=== PATIENT | male | born 1975 | race African-American/Black ===

== ENCOUNTER 2016-12-22 03:35 | Inpatient (IN) | payer MEDICAID, SELFPAY ==
--- OUTSIDE RECORDS SUMMARY | 2016-12-22 03:38 | XMS | Continuity of Care Document ---
:1975 Author Organization [facility] Care Team Providers Name Role Phone CRISTOFER SAUL Primary Care Physician Unavailable Insurance Providers Payer Name Policy Number Subscriber Name Relationship MEDICAID PENDING MIRIAN WOODS SELF/SAME PATIENT IZABELA CARE PENDING MIRIAN WOODS SELF/SAME PATIENT Advance Directives Directive Response Recorded Date/Time Code Status Level I-Full Code 10/27/16 7:18pm Chief Complaint and Reason for Visit Reason for Visit DM FOOT ULCER Problems Active Medical Problems Problem Onset Date Recorded Date Status DM foot ulcer Unknown 10/21/16 Active Medications Current Home Medications Medication Dose Units Route Directions Days/Qty Instructions Start Date ACETAMINOPHEN 1 TAB By Mouth EVERY SIX W/CODEINE #3 HOURS 7 (TYLENOL/CODEINE NEEDED as #3 TAB) 300 needed for MG/30 MG TAB PAIN ALLOPURINOL 100 MG By Mouth EVERY DAY @ (ALLOPURINOL 100 0900 MG) 100 MG TAB Aspirin (ASPIRIN 325 MG By Mouth EVERY DAY @ 30 EC 325 MG TAB) 0900 7 325 MG TAB Atorvastatin 40 MG By Mouth AT BEDTIME 30 Calcium (LIPITOR (2100) 7 40 MG TAB) 40 MG TAB Ciprofloxacin 500 MG By Mouth TWICE A DAY 14 Days HCl (0900; 2099) 7 (CIPROFLOXACIN 500 MG TAB) 500 MG TAB Clindamycin HCl 300 MG By Mouth EVERY 8 HOURS 14 Days (CLINDAMYCIN 300 (06,14,22) 7 MG CAP) 300 MG CAP Clopidogrel 75 MG By Mouth EVERY DAY @ 30 Bisulfate 0900 7 (PLAVIX 75 MG TAB) 75 MG TAB INSULIN (HUMAN) 25 UNIT Subcutaneous TWICE DAILY, 30 Days 70/30 (NovoLIN Injection BEFORE MEALS 7 70/30 INJ) 100 UNITS/ML INJ LISINOPRIL 40 MG By Mouth EVERY DAY @ 30 (LISINOPRIL 40 0900 7 MG TAB) 40 MG TAB METFORMIN 1,000 MG By Mouth TWICE DAILY 60 HYDROCHLORIDE WITH MEALS 7 (METFORMIN 1,000 MG TAB) 1,000 MG TAB METOPROLOL 50 MG By Mouth TWICE A DAY 60 TARTRATE (09; 2099) 7 (METOPROLOL 50 MG TAB) 50 MG TAB Social History Problem Response Recorded Date Jain/Cultural Preferences: SIKH 10/21/16 Recreational drugs? N 10/21/16 Alcohol? Y 10/21/16 Query Response Start Date Stop Date Smoking Status: Current Every Day Smoker Hospital Discharge Instructions Diagnosis: DIABETIC FOOT ULCER Goal: IMPROVE CONDITION Intervention: ARTERIAL STENT AND DEBRIDEMENT OF FOOT ULCERS Anticipated Discharge Date 10/28/16 Anticipated Discharge Time 1500 Plan of Care Discharge Date 10/28/16 Disposition HOME/SELF CARE Instructions/Education Provided Diabetic Foot Ulcer Forms Provided Patient Portal [employer] Instruct DI How to Quit Smoking Prescriptions See Medications Section Additional Instructions/Education F/U W/ [facility] IN 1WK F/U W/ DR PRADO IN 1WK F/U W/ DR DEAL (CARDIOLOGY) IN 2WKS Care Plan and Goals See Discharge Instructions section Functional Status Query Response Date Recorded WNL?+ Y October 28, 2016 9:00am Allergies, Adverse Reactions, Alerts No known allergies. Immunizations Name Date Given Type Pnuemonia Vaccine last 5 years? Y Historical Estimated Date: 05/27/16 Historical Vital Signs Vital Reading Collection Date/Time Result Blood Pressure 10/28/16 2:15pm 155/91 Blood Pressure Source 10/28/16 12:00pm Auto Cuff Temperature 10/28/16 2:15pm 96.6 F Temperature Source 10/28/16 12:00pm Oral Respiratory Rate 10/28/16 2:15pm 18 Pulse Rate 10/28/16 2:15pm 78 Pulse Location 10/28/16 12:00pm Monitor Bedside Pulse Oximetry 10/28/16 2:15pm 100 Height 10/20/16 11:32pm 6 ft 3 in Height 10/20/16 11:32pm 190.5 cm Weight 10/20/16 11:32pm 236 lb Weight 10/20/16 11:32pm 107.048 kg Body Mass Index 10/20/16 11:32pm 29.5 kg/m2 Results Laboratory Results Test Name Result Units Flags Reference Collection Result Comments Date/Time Date/Time Glucose 105 mg/dL 70-109 10/28/16 10/28/16 (Fingerstick) 7:55am 8:25am Vancomycin Level 16 ug/mL H 10-10/27/16 10/27/16 Trough 8:38am 9:01am Sodium Level 140 mmol/L 135-144 10/26/16 10/26/16 3:25am 5:35am Potassium Level 3.7 mmol/L 3.5-5.1 10/26/16 10/26/16 3:25am 5:35am Chloride Level 106 mmol/L 101-111 10/26/16 10/26/16 3:25am 5:35am Carbon Dioxide 27 mmol/L 22-32 10/26/16 10/26/16 Level 3:25am 5:35am Anion Gap 10.7 mmol/L 10-20 10/26/16 10/26/16 3:25am 5:35am Glucose Level 182 mg/dL H 70-109 10/26/16 10/26/16 Random glucose > 200 mg/dL in a patient with typical 3:25am 5:35am symptoms of diabetes (polydipsia, polyuria and unexplained weight loss) satisfies ADA criteria for diabetes mellitus if confirmed by repeat testing on another day. Confirmation is unnecessary when acute metabolic decompensation with hyperglycemia is manifested. Reference: Report of the Expert Committee on the Diagnosis and Classification of Diabetes Mellitus. Diabetes Care, 20:1183, 1997. Blood Urea 12 mg/dL 8-26 10/26/16 10/26/16 Nitrogen 3:25am 5:35am Creatinine 1.00 mg/dL 0.61-1.24 10/26/16 10/26/16 3:25am 5:35am EGFR Note 117.8 59.3-175.8 10/26/16 10/26/16 eGFR (Estimated Glomerular Filtration Rate) 3:25am 5:35am eGFR calculation value obtained using the [facility] Quadratic (MCQ) equation. The reportable reference range is recommended to be greater than 60 ml/min/1.73m. This is an estimation of the patient's GFR and clinical correlation is recommended. This eGFR calculation does not account for race. This result may differ from other equations available. Calcium Level 8.8 mg/dL L 8.9-10.3 10/26/16 10/26/16 3:25am 5:35am White Blood 5.2 K/uL 4.8-10.8 10/23/16 10/23/16 Count 4:00am 4:43am Red Blood Count 4.30 M/uL L 4.70-6.00 10/23/16 10/23/16 4:00am 4:43am Hemoglobin 12.0 g/dL L 13.5-17.5 10/23/16 10/23/16 4:00am 4:43am Hematocrit 35.7 % L 42.0-52.0 10/23/16 10/23/16 4:00am 4:43am Mean Corpuscular 83.0 fl 80.0-100.0 10/23/16 10/23/16 Volume 4:00am 4:43am Mean Corpuscular 28.0 pg 27.0-31.0 10/23/16 10/23/16 Hemoglobin 4:00am 4:43am Mean Corpuscular 33.7 g/dL 32.0-36.0 10/23/16 10/23/16 Hgb Concent Diff 4:00am 4:43am Red Cell 14.8 % H 11.5-14.5 10/23/16 10/23/16 Distribution 4:00am 4:43am Width Platelet Count 234 K/uL 130-400 10/23/16 10/23/16 4:00am 4:43am Mean Platelet 7.6 fl 10/23/16 10/23/16 Volume 4:00am 4:43am Granulocytes (%) 45.2 % L 50.0-75.0 10/23/16 10/23/16 4:00am 4:43am Lymphocytes % 41.8 % H 20.0-40.0 10/23/16 10/23/16 4:00am 4:43am Monocytes % 6.4 % 0.0-15.0 10/23/16 10/23/16 4:00am 4:43am Eosinophils % 6.0 % 0.0-10.0 10/23/16 10/23/16 4:00am 4:43am Basophils % 0.6 % 0.0-2.0 10/23/16 10/23/16 4:00am 4:43am Granulocytes # 2.4 K/uL 1.8-6.4 10/23/16 10/23/16 4:00am 4:43am Lymphocytes # 2.2 K/uL 1.2-3.6 10/23/16 10/23/16 4:00am 4:43am Monocytes # 0.3 K/uL 0.3-0.9 10/23/16 10/23/16 4:00am 4:43am Eosinophils # 0.3 K/ul 0.0-0.5 10/23/16 10/23/16 4:00am 4:43am Basophils # 0.0 K/uL 0.0-0.2 10/23/16 10/23/16 4:00am 4:43am Manual NO 10/23/16 10/23/16 Differential 4:00am 4:43am N/A CALCULATE 10/23/16 10/23/16 CORONARY HEART DISEASE (CHD) RISK FACTORS: BELOW 4:00am 11:16am +1, Age (y): Men, >45 Women, >55 or Premature Menopause Without Estrogen Therapy +1, Family History of Premature CHD +1, Current Cigarette Smoking +1, Hypertension +1, Low HDL-C: <40 mg/dL -1, High HDL-C: 60 mg/dL or More Total RFs CHD Risk Equivalents (REq): Diabetes Other Forms of Atherosclerotic Disease Lipid testing of hospitalized patients may be inaccurate due to fluctuations from the patients normal metabolic state. Accurate triglyceride and LDL testing requires a fasting specimen. If non-fasting cholesterol > kf=545 mg/dL or HDL is < 40 mg/dL, fasting lipid panel is recommended. Repeat testing recommended prior to treatment. Desirable Levels Cholesterol 157 mg/dL 0-200 10/23/16 10/23/16 Level 4:00am 11:40am Triglycerides 81 mg/dL 10-150 10/23/16 10/23/16 Normal triglycerides: <150 mg/dL Level 4:00am 11:40am Borderline-high triglycerides: 150-199 mg/dL High triglycerides: 200-499 mg/dL Very high triglycerides: > fa=208 mg/dL HDL Cholesterol 50 mg/dL 40-130 10/23/16 10/23/16 4:00am 11:40am N/A 3.1 0.0-5.0 10/23/16 10/23/16 4:00am 11:40am LDL Cholesterol 91 mg/dL 0-130 10/23/16 10/23/16 *LDL Cholesterol < 130 mg/dL, No CHD or CHD Risk Equivalent (Measured) 4:00am 11:40am <100 mg/dL, With CHD or CHD Risk Equivalent LDL Cholesterol Therapeutic Goal: 100 mg/dL or Less if CHD or CHD Risk Equivalent Present <130 mg/dL if No CHD or REq; 2 or more Risk Factors <160 mg/dL if No CHD or REq; 0-1 Risk Factors Reference: ATP III, RYANNE, 285:26, 8777-77, 2001. Magnesium Level 2.0 mg/dL 1.8-2.5 10/23/16 10/23/16 4:00am 4:50am Miscellaneous YES YES 10/21/16 10/21/16 Test Comment 1:20am 2:09am Erythrocyte 17 mm/hr H 0-15 10/21/16 10/21/16 Sedimentation 1:20am 2:09am Rate Albumin 4.2 g/dL 3.5-5.0 10/21/16 10/21/16 1:20am 1:50am Total Bilirubin 0.4 mg/dL 0.3-1.2 10/21/16 10/21/16 1:20am 1:50am Alkaline 48 IU/L 32-91 10/21/16 10/21/16 Phosphatase 1:20am 1:50am Total Protein 6.9 g/dL 6.5-8.1 10/21/16 10/21/16 1:20am 1:50am Alanine 18 IU/L 7-55 10/21/16 10/21/16 Aminotransferase 1:20am 1:50am (ALT/SGPT) Aspartate Amino 14 IU/L L 15-41 10/21/16 10/21/16 Transf 1:20am 1:50am (AST/SGOT) Globulin 2.7 g/dL 2.3-3.5 10/21/16 10/21/16 1:20am 1:50am Albumin/Globulin 1.6 1.2-2.2 10/21/16 10/21/16 Ratio 1:20am 1:50am C-Reactive < 1.0 MG/DL 0.0-1.0 10/21/16 10/21/16 Protein 1:20am 1:50am Hemoglobin A1c 10.9 % H 4.0-6.0 10/21/16 10/21/16 Elevated levels of HbA1c suggest the need for more Percent 6:00pm 9:51am aggresssive treatment of glycemia. The [place] [employer] recommends that a primary goal of therapy should be a HbA1c of <7% and that physicians should reevaluate the treatment regimen in patients with HbA1c values consistently >8%. N/A 265 mg/dL 10/21/16 10/21/16 A1C Result% Estimated Avg.Glucose ( EAG) 6:00pm 9:51am 6.0% 126 mg/dL 6.5% 140 mg/dL 7.0% 154 mg/dL 7.5% 169 mg/dL 8.0% 183 mg/dL 8.5% 197 mg/dL 9.0% 212 mg/dL 9.5% 226 mg/dL 10.0% 240 mg/dL Reference: Mookie et al, Diabetes Care 31: 1437, 2008. Microbiology Results Procedure Source Result Collection Date/Time Result Date/Time Anaerobic Culture Foot, Right CULTURE IN 10/26/16 6:00pm 10/27/16 9:37am PROGRESS. Blood Culture Blood NO GROWTH AT 5 10/21/16 1:20am 10/26/16 6:31am DAYS. [facility] DISCHARGE SUMMARY Mirian Woods ADM: 10/21/2016 DIS: 10/28/2016 JarredR.#: [id number] [facility] [id number] HISTORY OF PRESENT ILLNESS: This is a 41-year-old male with a past medical history of type 2 diabetes, who presents with a wound on his foot. See History and physical for further details. HOSPITAL COURSE: Right lower extremity diabetic foot infection with ulceration. Patient had evidence of septic arthritis. Patient underwent I and D and aggressive IV antibiotic therapy. Cultures yielded no growth, but he did have improvement of symptoms. Bone biopsy revealed no evidence of osteomyelitis. He had significant peripheral arterial disease and he was revascularized in that leg with stenting. He had uncontrolled diabetes mellitus with an A1c of 10, and he was started on insulin therapy as well as metformin on discharge. His hypertension was controlled with an JENA inhibitor. Overall, patient's condition stabilized, he did well, and he was discharged home with oral antibiotics, oral pain medication, and outpatient follow up, as well as insulin therapy. DISPOSITION: Discharged home. DIAGNOSES: 1. Right lower extremity diabetic foot infection with ulceration. 2. Peripheral arterial disease. 3. Uncontrolled type 2 diabetes mellitus. 4. Hypertension. DIET: Diabetic. ACTIVITY: As instructed. FOLLOWUP: Patient is to follow up with Dr. Miller in 1 week. Patient is follow up with [facility] in 1 week. Patient is to follow up with Dr. Glass with Cardiology in 2 weeks. SP/DTShailesh/C0240 Geri Fox M.D. DISCHARGE SUMMARY DATE: TIME: /DTS C0240 #[id number] Report Dictated By: GERI FOX Report Signed By: GERI FOX 10/28/16 1301 <<Signature on File>> Report Cosigned By: Procedures No Known History of Procedures. Encounters Encounter Location Arrival/Admit Date Discharge/Depart Date Attending Provider Discharged [place] 10/20/16 11:31pm 10/28/16 3:44pm KRISTYN CRUZ [facility] Encounter Diagnosis Onset Date DM foot ulcer
--- OUTSIDE RECORDS SUMMARY | 2016-12-22 03:38 | XMS | Continuity of Care Document ---
:[address] [facility] Care Team Providers Name Role Phone NOLOCAL, PRIMARY Primary Care Physician Unavailable Insurance Providers Payer Name Policy Number Subscriber Name Relationship MEDICAID PENDING MIRIAN WOODS SELF/SAME PATIENT IZABELA CARE PENDING MIRIAN WOODS SELF/SAME PATIENT Chief Complaint and Reason for Visit Reason for Visit MY INCISION CAME OPEN Problems Active Medical Problems Problem Onset Date Recorded Date Status DM foot ulcer Unknown 10/21/16 Active Encounter for removal of sutures Unknown 11/16/16 Active Medications Current Home Medications Medication Dose Units Route Directions Days/Qty Instructions Start Date ACETAMINOPHEN 1 TAB By Mouth EVERY SIX W/CODEINE #3 HOURS 7 (TYLENOL/CODEINE NEEDED as #3 TAB) 300 needed for MG/30 MG TAB PAIN ALLOPURINOL 100 MG By Mouth EVERY DAY @ (ALLOPURINOL 100 0900 MG) 100 MG TAB Aspirin (ASPIRIN 325 MG By Mouth EVERY DAY @ EC 325 MG TAB) 0900 7 325 MG TAB Atorvastatin 40 MG By Mouth AT BEDTIME Calcium (LIPITOR (2100) 7 40 MG TAB) 40 MG TAB Ciprofloxacin 500 MG By Mouth TWICE A DAY 14 Days HCl (0900; 2099) 7 (CIPROFLOXACIN 500 MG TAB) 500 MG TAB Clindamycin HCl 300 MG By Mouth EVERY 8 HOURS 14 Days (CLINDAMYCIN 300 (06,,) 7 MG CAP) 300 MG CAP Clindamycin HCl 300 MG By Mouth EVERY 8 HOURS 30 (CLINDAMYCIN 300 (06,,) 7 MG CAP) 300 MG CAP Clopidogrel 75 MG By Mouth EVERY DAY @ 30 Bisulfate 0900 7 (PLAVIX 75 MG TAB) 75 MG TAB INSULIN (HUMAN) 25 UNIT Subcutaneous TWICE DAILY, 30 Days 70/30 (NovoLIN Injection BEFORE MEALS 7 7030 INJ) 100 UNITS/ML INJ LISINOPRIL 40 MG By Mouth EVERY DAY @ 30 (LISINOPRIL 40 0900 7 MG TAB) 40 MG TAB METFORMIN 1,000 MG By Mouth TWICE DAILY 60 HYDROCHLORIDE WITH MEALS 7 (METFORMIN 1,000 MG TAB) 1,000 MG TAB METOPROLOL 50 MG By Mouth TWICE A DAY 60 TARTRATE (0900; 2100) 7 (METOPROLOL 50 MG TAB) 50 MG TAB Mupirocin 2% Top 2 % External THREE TIME A 10 Days OINT (BACTROBAN DAY(;15;21) 7 2% OINTMENT) 2 % OIN Social History Problem Response Recorded Date Recreational drugs? N 11/16/16 Alcohol? N 11/16/16 Query Response Start Date Stop Date Smoking Status: Unknown Hospital Discharge Instructions Diagnosis: DIABETIC FOOT ULCER Goal: IMPROVE CONDITION Intervention: ARTERIAL STENT AND DEBRIDEMENT OF FOOT ULCERS Anticipated Discharge Date 10/28/16 Anticipated Discharge Time 1500 Plan of Care Discharge Date 11/19/16 Disposition HOME/SELF CARE Condition at Discharge STABLE Instructions/Education Provided DI for Diabetic Foot Ulcer Forms Provided Discharge Form Prescriptions See Medications Section Referrals NOLOCAL,PRIMARY CARE DOC - Additional Instructions/Education Please keep area clean and dry. Apply antibiotic ointment two to three times daily. Follow up with press tender within one week to set up wound care. Request home visits. Return to ER for development of worrisome symptoms. Functional Status No functional status results. Allergies, Adverse Reactions, Alerts No known allergies. Immunizations No Known History of Immunizations. Vital Signs Vital Reading Collection Date/Time Result Blood Pressure 11/19/16 9:38pm 148/78 Temperature 11/19/16 9:38pm 98.1 F Respiratory Rate 10/28/16 2:15pm 18 Pulse Rate 11/19/16 9:38pm 87 Bedside Pulse Oximetry 11/19/16 9:38pm 98 Height 11/19/16 6:19pm 6 ft 3 in Height 11/19/16 6:19pm 190.5 cm Weight 11/19/16 6:19pm 255 lb Weight 11/19/16 6:19pm 115.666 kg Body Mass Index 11/19/16 6:19pm 31.9 kg/m2 Results Laboratory Results Test Name Result Units Flags Reference Collection Result Comments Date/Time Date/Time Glucose 96 mg/dL 70-109 10/28/16 10/28/16 (Fingerstick) 12:37pm 7:15pm Vancomycin Level 16 ug/mL H 10-15 10/27/16 10/27/16 Trough 8:38am 9:01am Sodium Level 140 mmol/L 135-144 10/26/16 10/26/16 3:25am 5:35am Potassium Level 3.7 mmol/L 3.5-5.1 10/26/16 10/26/16 3:25am 5:35am Chloride Level 106 mmol/L 101-111 10/26/16 10/26/16 3:25am 5:35am Carbon Dioxide 27 mmol/L 22-32 10/26/16 10/26/16 Level 3:25am 5:35am Anion Gap 10.7 mmol/L 10-10/26/16 10/26/16 3:25am 5:35am Glucose Level 182 mg/dL [...] 5:35am eGFR calculation value obtained using the [facility] Quadratic (MCQ) equation. The reportable reference [...] a fasting specimen. If non-fasting cholesterol > vk=411 mg/dL or HDL is < 40 mg/dL, fasting lipid panel is recommended. Repeat testing recommended prior to treatment. Desirable Levels Cholesterol 157 mg/dL 0-200 10/23/16 10/23/16 Level 4:00am 11:40am Triglycerides 81 mg/dL 10-150 10/23/16 10/23/16 Normal triglycerides: <150 mg/dL Level 4:00am 11:40am Borderline-high triglycerides: 150-199 mg/dL High triglycerides: 200-499 mg/dL Very high triglycerides: > kh=533 mg/dL HDL Cholesterol 50 mg/dL 40-130 10/23/16 [...] 0-1 Risk Factors Reference: ATP III, RYANNE, 285:40, 3934-84, 2000. Magnesium Level 2.0 mg/dL 1.8-2.5 10/23/16 10/23/16 [...] 6:00pm 9:51am aggresssive treatment of glycemia. The [place] [employer] recommends that a primary goal [...] 9.5% 226 mg/dL 10.0% 240 mg/dL Reference: ramesh Damico, Diabetes Care 31: 1437, 2008. Microbiology Results Procedure Source Result Collection Date/Time Result Date/Time Blood Culture Blood NO GROWTH AT 5 DAYS. 10/21/16 1:20am 10/26/16 6:31am [facility] DISCHARGE SUMMARY Mirian Woods ADM: 10/21/2016 DIS: 10/28/2016 Demetra#: [id number] [facility]#: [id number] HISTORY OF PRESENT ILLNESS: This is a [...] 1 week. Patient is follow up with [facility] in 1 week. Patient is to follow up with Dr. Glass with Cardiology in 2 weeks. SP/DTS/C0240 Geri Fox M.D. DISCHARGE SUMMARY DATE: TIME: /DTS C0240 #[id number] Report Dictated By: GERI FOX Report Signed By: GERI FOX 10/28/16 1301 <<Signature on File>> Report Cosigned By: Procedures Procedure Status Date Provider(s) DILATION OF R POST TIB ART WITH 2 DRUG-ELUT, Completed 10/23/16 AL GLASS MD PERC APPROACH EXTIRPATION OF MATTER FROM R POST TIB ART, Completed 10/23/16 AL GLASS MD PERC APPROACH EXCISION OF RIGHT METATARSAL, OPEN APPROACH Completed 10/26/16 DARYL MILLER EXCISION OF RIGHT METATARSAL, OPEN APPROACH, Completed 10/26/16 DARYL MILLER DIAGNOSTIC FLUOROSCOPY OF AORTA, BI LE ART USING L OSM Completed 10/23/16 AL GLASS MD CONTRAST Encounters Encounter Location Arrival/Admit Date Discharge/Depart Date Attending Provider Departed [place] 11/19/16 6:18pm 11/19/16 9:38pm BRANDI VILLALOBOS [facility] Departed [place] 11/16/16 10:38am 11/16/16 11:34am Dewayne Olvera [facility] Discharged [place] 10/20/16 11:31pm 10/28/16 3:44pm JOYCE NAVARRETE [facility] Encounter Diagnosis Onset Date DM foot ulcer
--- OUTSIDE RECORDS SUMMARY | 2016-12-22 03:38 | XMS | Continuity of Care Document ---
:1975 Author Organization [facility] Care Team Providers Name Role Phone CRISTOFER SAUL Primary Care Physician Unavailable Insurance Providers Payer Name Policy Number Subscriber Name Relationship MEDICAID PENDING MIRIAN WOODS SELF/SAME PATIENT I[employer]ABEL[employer] CARE PENDING MIRIAN WOODS SELF/SAME PATIENT Chief Complaint and Reason for Visit Reason for Visit GET MY STITCHES OUT Problems Active Medical Problems Problem Onset Date [...] EVERY 8 HOURS 14 Days (CLINDAMYCIN 300 (06,14,) 7 MG CAP) 300 MG CAP Clopidogrel [...] TAB Social History Problem Response Recorded Date Recreational drugs? N 11/16/16 Alcohol? N 11/16/16 Query Response Start Date Stop Date Smoking Status: Current Every Day Smoker Hospital Discharge Instructions Diagnosis: DIABETIC FOOT ULCER Goal: IMPROVE CONDITION Intervention: ARTERIAL STENT AND DEBRIDEMENT OF FOOT ULCERS Anticipated Discharge Date 10/28/16 Anticipated Discharge Time 1500 Plan of Care Discharge Date 11/16/16 Disposition HOME/SELF CARE Condition at Discharge STABLE Instructions/Education Provided DI for Suture Removal Forms Provided Discharge Form Prescriptions See Medications Section Referrals KG,CRISTOFER - Additional Instructions/Education SUTURE REMOVAL. PLEASE WATCH FOOT CLOSELY, NO SIGNS OF INFECTION, HEALING WOUND, BUT CONSIDERING YOUR DIABETIC YOU'RE PRONE TO INFECTION, WATCH FOR REDNESS, DRAINAGE, FEVER AND SEEK MEDICAL CARE IMMEDIATELY. Functional Status No functional status results. Allergies, Adverse Reactions, Alerts No known allergies. Immunizations No Known History of Immunizations. Vital Signs Vital Reading Collection Date/Time Result Blood Pressure 11/16/16 11:31am 120/70 Temperature 11/16/16 11:31am 98.0 F Temperature Source 11/16/16 10:39am Oral Respiratory Rate 10/28/16 2:15pm 18 Pulse Rate 11/16/16 11:31am 71 Bedside Pulse Oximetry 11/16/16 11:31am 99 Height 11/16/16 10:39am 6 ft 3 in Height 11/16/16 10:39am 190.5 cm Weight 11/16/16 10:39am 255 lb Weight 11/16/16 10:39am 115.666 kg Body Mass Index 11/16/16 10:39am 31.9 kg/m2 Results Laboratory Results Test Name [...] Care, 20:1183, 1997. Blood Urea 12 mg/dL 8-10/26/16 10/26/16 Nitrogen 3:25am 5:35am Creatinine 1.00 mg/dL 0.61-1.24 10/26/16 10/26/16 3:25am 5:35am EGFR Note 117.8 59.3-175.8 10/26/16 10/26/16 eGFR (Estimated Glomerular Filtration Rate) 3:25am 5:35am eGFR calculation value obtained using the [facility] Quadratic (MCQ) equation. The reportable reference range [...] a fasting specimen. If non-fasting cholesterol > bu=779 mg/dL or HDL is < 40 mg/dL, fasting lipid panel is recommended. Repeat testing recommended prior to treatment. Desirable Levels Cholesterol 157 mg/dL 0-200 10/23/16 10/23/16 Level 4:00am 11:40am Triglycerides 81 mg/dL 10-150 10/23/16 10/23/16 Normal triglycerides: <150 mg/dL Level 4:00am 11:40am Borderline-high triglycerides: 150-199 mg/dL High triglycerides: 200-499 mg/dL Very high triglycerides: > ei=153 mg/dL HDL Cholesterol 50 mg/dL 40-130 10/23/16 [...] 0-1 Risk Factors Reference: ATP III, RYANNE, 285:53, 9827-48, 2000. Magnesium Level 2.0 mg/dL 1.8-2.5 10/23/16 [...] 6:00pm 9:51am aggresssive treatment of glycemia. The [place] Diabetes [employer] recommends that a primary goal [...] 9.5% 226 mg/dL 10.0% 240 mg/dL Reference: damaris Damico al, Diabetes Care 31: 1437, 2008. Microbiology Results Procedure Source Result Collection Date/Time Result Date/Time Blood Culture Blood NO GROWTH AT 5 DAYS. 10/21/16 1:20am 10/26/16 6:31am [facility] DISCHARGE SUMMARY Mirian Woods ADM: 10/21/2016 DIS: 10/28/2016 Demetra#: [id number] HISTORY OF PRESENT ILLNESS: This is a [...] Patient is to follow up with Dr. Rosenbaum in 1 week. Patient is follow up with [facility] in 1 week. Patient is to follow up with Dr. Glass with Cardiology in 2 weeks. SP/DTS/C0240 Geri Fox M.D. DISCHARGE SUMMARY DATE: TIME: /DT C0240 [id number] Report Dictated By: GERI FOX Report Signed By: GERI FOX 10/28/16 1301 <<Signature on File>> Report Cosigned By: Procedures Procedure Status Date Provider(s) DILATION OF R POST TIB ART WITH 2 DRUG-ELUT, Completed 10/23/16 AL GLASS MD PERC APPROACH EXTIRPATION OF MATTER FROM R POST TIB ART, Completed 10/23/16 AL GLASS MD PERC APPROACH EXCISION OF RIGHT METATARSAL, OPEN APPROACH Completed 10/26/16 DARYL ROSENBAUM EXCISION OF RIGHT METATARSAL, OPEN APPROACH, Completed 10/26/16 DARYL ROSENBAUM DIAGNOSTIC FLUOROSCOPY OF AORTA, BI LE ART USING L OSM Completed 10/23/16 AL GLASS MD CONTRAST Encounters Encounter Location Arrival/Admit Date Discharge/Depart Date Attending Provider Departed [place] 11/16/16 10:38am 11/16/16 11:34am Dewayne Olvera [facility] Discharged [place] 10/20/16 11:31pm 10/28/16 3:44pm JOYCE NAVARRETE [facility] Encounter Diagnosis Onset Date Encounter for removal of sutures
--- NOTE | 2016-12-22 06:09 | HP ---
PRIMARY CARE PHYSICIAN: [facility] CHIEF COMPLAINT: Right foot pain. HISTORY OF PRESENT ILLNESS: The patient is a 41-year-old male with uncontrolled di abetes mellitus type 2, presented to the emergency room at [place] with the above complaints. He was transferred to this facility for hospital admission. Over the last 1 week, the patient developed gradual worsening swelling of his right foot along with warmth and tenderness. He also felt feverish without any chills. He has a chronic ulcer on the rig ht foot that started draining pus earlier today. Two months ago, the patient had some surgical inte rvention done at [facility]. He is unable to provide further details of the proce dures. The pain is moderate in intensity, worse on movement. The patient was managing his wound on his own. In the emergency room, his initial vital signs showed temperature 99.5, respirations 16, pulse of 99 , blood pressure 179/98 with O2 saturation 98% on room air. His temperature while in the emergency room kwame to 101.3. An x-ray of the foot showed soft tissue swelling without any subcutaneous gas. He received vancomycin and Zosyn, 2 grams Rocephin, 4 mg, Dilaudid, 30 mg Toradol, Zofran and Tylen ol in the emergency room. PAST MEDICAL HISTORY: 1. Uncontrolled diabetes mellitus type 2 with hemoglobin A1c of 12.6. 2. Ongoing tobacco abuse. 3. Hypertension. 4. Dyslipidemia. 5. Chronic kidney disease stage 2. PAST SURGICAL HISTORY: Recent surgical intervention of the right foot ulcer. ALLERGIES: No known drug allergies. CURRENT HOME MEDICATIONS: The patient states that he takes insulin 28 units every day. His last do se of insulin was 2 days ago. He is unable to recall other home medications. FAMILY HISTORY: Positive for diabetes. SOCIAL HISTORY: Patient smokes cigarettes on a daily basis up to 1 pack a day. Denies any alcohol or drug use. REVIEW OF SYSTEMS: The following complete review of systems was negative, unless otherwise mentioned in the HPI or below: Constitutional: Weight loss or gain, ability to conduct usual activities. Skin: Rash, itching. Eyes: Double vision, pain. ENT/Mouth: Nose bleeding, neck stiffness, pain, tenderness. Cardiovascular: Palpitations, dyspnea on exertion, orthopnea. Respiratory: Shortness of breath, wheezing, cough, hemoptysis, fever or night sweats. Gastrointestinal: Poor appetite, abdominal pain, heartburn, nausea, vomiting, constipation, or diarrhea. Genitourinary: Urgency, frequency, dysuria, nocturia. Musculoskeletal: Pain, swelling. Neurologic/Psychiatric: Anxiety, depression. Allergy/Immunologic: Skin rash, bleeding tendency. PHYSICAL EXAMINATION: VITAL SIGNS: As discussed above. GENERAL: A 41-year-old male in mild distress due to right foot pain. HEENT: Head atraumatic, normocephalic, sclerae are anicteric. Moist mucous membrane, no oral lesio n. NECK: Supple, no JVD, no carotid bruit. LUNGS: Clear to auscultation bilaterally. HEART: S1, S2 present. Regular rate and rhythm. ABDOMEN: Soft. Bowel sounds present. EXTREMITIES: There is 2+ edema in right lower extremity with warmth and tenderness. There is a lar ge area of induration and fluctuance on the medial aspect of the right 1st metatarsal with purulent drainage. Pedal pulses were diminished bilaterally. SKIN: As above. PERIPHERAL VASCULAR: As discussed above. LYMPH NODES: No palpable lymph nodes in the neck and groin. LABORATORY FINDINGS: 1. CBC showed WBC 7.2 with hemoglobin 10.5, hematocrit 31.5, platelet of 387. 2. Blood sugars were 396, sodium 135, potassium 4. 3. Hemoglobin A1c 12.6. 4. Albumin 3.4. 5. X-ray of the foot by my review as discussed above. Chest x-ray by my review was negative for in filtrate. IMPRESSION AND PLAN: 1. Infected diabetic foot ulcer with sepsis. The patient will be monitored on the medical floor. We will keep the patient n.p.o. for possible surgical intervention. General Surgery will be consult ed. The ER physician already discussed the case with Dr. Barrios. We will start him on gentle IV hy dration due to elevated blood pressure. We will continue vancomycin and Zosyn for now. We will con sult Wound Care. 2. Diabetes mellitus type 2, uncontrolled. We will start him on insulin sliding scale along with L evemir. The patient was extensively counseled to be compliant with diabetic regimen. 3. Hypertension, uncontrolled. We will resume home medication once confirmed. 4. Medication noncompliance. 5. Mild hyponatremia secondary to hyperglycemia. 6. Ongoing tobacco abuse. The patient was counseled. 7. Dyslipidemia. The patient was advised to follow up with his primary care physician. 8. Plan of care was discussed with the patient and he stated understanding.
[2016-12-22] MEDS ORDERED: Vancomycin HCl 1 GM in Premix Bag 1 BAG IVPB SCH ×2 (06:34→14:00)
[2016-12-22] MEDS ORDERED: Dextrose 5% in Water 1,000 ML IV PRN ×2 (06:34→06:40)
[2016-12-22] MEDS ORDERED: Ondansetron HCl/PF 4 MG/2 ML Vial IVP PRN ×2 (06:34→06:37)
[2016-12-22] MEDS ORDERED: Senokot 8.6 MG TAB PO PRN (06:34)
[2016-12-22] MEDS ORDERED: Ondansetron ODT 4 MG TAB PO PRN (06:34)
[2016-12-22] MEDS ORDERED: Bisacodyl 10 MG SUPP PR PRN (06:34)
[2016-12-22] MEDS ORDERED: Dextrose 50% Abboject 50 ML SYRINGE SLOW IVP PRN (06:34)
[2016-12-22] MEDS ORDERED: Piperacillin/Tazobactam 3.375 GM in Sodium Chloride 0.9% 100 ML IVPB SCH ×2 (06:34→08:00)
[2016-12-22] MEDS ORDERED: Diabetic Tussin 200 MG/10 ML UDCUP PO PRN (06:34)
[2016-12-22] MEDS ORDERED: Ondansetron ODT 4 MG TAB SL PRN (06:37)
[2016-12-22] MEDS ORDERED: 1/2 NS w/KCL 20 mEq 1,000 ML IV SCH (06:37)
[2016-12-22] MEDS ORDERED: Insulin Regular 300 UNITS/3 ML VIAL SC PRN (06:40)
[2016-12-22] MEDS ORDERED: Dextrose 50% Abboject 50 ML SYRINGE IVP PRN (06:40)
[2016-12-22] MEDS ORDERED: Insulin Detemir 100 UNITS/ML 10 UNITS in Pre-Filled Syringe 1 EACH SC SCH (07:00)
--- NOTE | 2016-12-22 07:36 | CON ---
DATE OF CONSULTATION: 12/22/2016 HISTORY OF PRESENT ILLNESS: Avtar Woods is a 41-year-old black male patient who lives in [facility] with his sister. He states he has been in and out of intermediate and group home. He states his mother is recent and this has changed his life. He was working for [employer], but has a leave of ab sence due to the right foot problems. The patient was hospitalized June of this year, [facility] for chest pain, diabetes mellitus type 2. On this occasion he presents with a diabetic right fo ot ulcer that has resulted in a severe infection in his right foot with x-rays demonstrating osteomy elitic changes of the head of the metatarsal. He was admitted to the medical service, hemoglobin 12 . I have been asked to see him regarding this diabetic foot infection. Patient reports that in [facility] he had some sort of vascular procedure with stenting, although he has a palpable dorsalis pe dis pulse. He does smoke 1 to 4 cigarettes a day. He does also have hypertension. The plan at this time is amputation of the right great toe and metatarsal and adjacent toes as indic ated based on operative findings. He understands the wound will be left open to heal by secondary i ntention. He will undergo wound care. This will be arranged as an outpatient. PAST MEDICAL HISTORY: Uncontrolled diabetes mellitus type 2, noncompliant. Hemoglobin A1c of 12.6, ongoing tobacco use, hypertension, dyslipidemia, chronic kidney disease. PAST SURGICAL HISTORY: Past surgery of the right foot and some sort of vascular stenting in [facility] earlier this year. ALLERGIES: None. MEDICATIONS: He takes insulin twice a day, does not take it every day. He does not recall his home medications. PHYSICAL EXAMINATION: VITAL SIGNS: Weight 107 kilograms, 179/98, 99, 16, temperature 99.5 degrees. HEENT: Unremarkable. LUNGS: Clear to auscultation. CARDIAC: Regular rate and rhythm without murmur or gallop. ABDOMEN: Soft, nontender. EXTREMITIES: Palpable femoral, popliteal, dorsalis pedis pulses bilaterally, severe infection of ri ght foot with diabetic infection with multiple ulcerations and purulent discharge, foul smelling. C ellulitic edematous foot. ASSESSMENT AND PLAN: 1. Severe diabetic infection, right foot. Plan amputation of right great toe and metatarsals as in dicated. 2. Ongoing tobacco use, encouraged cessation. 3. Poorly controlled diabetes. 4. Hypertension. 5. BUN and creatinine are normal. GFR greater than 90.
[2016-12-22] MEDS ORDERED: Fentanyl 100 MCG/2 ML VIAL ONE ×2 (08:01→08:47)
[2016-12-22] MEDS ORDERED: Midazolam HCl 2 mg/2 ml Vial ONE (08:01)
[2016-12-22] MEDS ORDERED: Vancomycin HCl 1.5 GM in Sodium Chloride 0.9% 250 ML 300 ML IVPB SCH (08:15)
[2016-12-22] MEDS ORDERED: Propofol 200 MG/20 ML VIAL ONE (08:36)
[2016-12-22] MEDS ORDERED: Lidocaine 2% PF 10 ML AMP (For Epidural Use) ONE (08:36)
[2016-12-22] MEDS: Piperacillin/Tazobactam 3.375 GM in Sodium Chloride 0.9% 100 ML IVPB SCH ×3 (09:28→20:20)
[2016-12-22] MEDS: Sodium Chloride 0.9% 1,000 ML IV SCH ×2 (10:25→12:06)
[2016-12-22] MEDS: Famotidine 20 MG TAB PO SCH ×2 (12:05→21:20)
[2016-12-22] MEDS: Docusate 100 MG CAP PO SCH ×2 (12:05→21:20)
[2016-12-22] MEDS: Folic Acid 1 MG TAB PO SCH (12:05)
--- NOTE | 2016-12-22 12:05 | OP ---
DATE OF PROCEDURE: 12/22/2016 PREOPERATIVE DIAGNOSES: Diabetic infection of right foot with osteomyelitis of the great toe metata rsal and neuropathic ulcer extending deep into the bone with bony destruction. No evidence of perip heral artery disease, excellent bleeding, palpable pulses. SURGEON: Dr. Marquis Barrios ANESTHESIA: General LMA. PROCEDURE: The patient was taken to the operating room where under general LMA anesthesia, the righ t lower extremity was prepared with chloraprep, draped in routine fashion. Incision was made to pre serve all skin, carried down through the skin and subcutaneous tissue excising the right great toe a nd metatarsal and underlying neuropathic ulcer. Hemostasis gained with the cautery. There was puls atile bleeding. Metatarsal transected with a bone cutter, resected proximally with rongeurs. Hemos tasis gained with cautery. Good hemostasis obtained. Wound Care arrived and placed a wound VAC. The patient will be discharged home in 24-72 hours after control of his diabetes and arrangement for outpatient wound care. He can followup in my office in 2-3 weeks.
[2016-12-22] MEDS: Insulin Regular 300 UNITS/3 ML VIAL SC PRN ×2 (12:12→16:19)
--- NOTE | 2016-12-22 13:08 | PDOC.PN ---
- Subjective Encounter Start Date: 12/22/16 Encounter Start Time: 12:00 Subjective: is post op, no sob or chest pain - Objective Resuscitation Status: Resuscitation Status FULL:Full Resuscitation MAR Reviewed: Yes Vital Signs & Weight: Vital Signs (12 hours) Temp Pulse Resp BP Pulse Ox 12/22/16 11:12 98.1 F 78 18 165/98 H 100 12/22/16 10:17 97.2 F L 80 18 100 12/22/16 06:34 97.6 F 80 18 155/93 H 100 Weight Weight 248 lb 9 oz Additional Labs: Accuchecks 12/22/16 12/22/16 11:58 08:24 POC Glucose 318 H 331 H Phys Exam - Physical Examination HEENT: PERRLA, moist MMs Neck: no JVD, supple Respiratory: no wheezing, no rales Cardiovascular: RRR, no significant murmur Gastrointestinal: soft, non-tender, positive bowel sounds Musculoskeletal: pulses present right fore foot in wound vac Neurological: non-focal, moves all 4 limbs Psychiatric: A&O x 3 Dx/Plan (1) Ulcer of right foot due to type 2 diabetes mellitus Code(s): E11.621 - TYPE 2 DIABETES MELLITUS WITH FOOT ULCER; L97.519 - NON-PRS CHRONIC ULCER OTH PRT RIGHT FOOT W UNSP SEVERITY Status: Acute (2) HTN (hypertension) Code(s): I10 - ESSENTIAL (PRIMARY) HYPERTENSION Status: Chronic Qualifiers: Hypertension type: essential hypertension Qualified Code(s): I10 - Essential (primary) hypertension (3) Dyslipidemia Code(s): E78.5 - HYPERLIPIDEMIA, UNSPECIFIED Status: Chronic (4) Chronic anemia Code(s): D64.9 - ANEMIA, UNSPECIFIED Status: Chronic (5) DM (diabetes mellitus), type 2, uncontrolled Code(s): E11.65 - TYPE 2 DIABETES MELLITUS WITH HYPERGLYCEMIA Status: Acute Qualifiers: Diabetes mellitus complication status: with hypoglycemia Diabetes mellitus terminal supervisor insulin use: with terminal supervisor use - Plan optimizing diabetic meds -: is s/p ray amp of right first toe -: on vanc and zosyn -: dc plan in 30hrs -: counselled reg diet and med compliance with HbA1C of 12 * . Review of Systems - Medications/Allergies Allergies/Adverse Reactions: Allergies Allergy/AdvReac Type Severity Reaction Status Date / Time No Known Allergies Allergy Verified 07/13/16 04:01 Medications: Current Medications Acetaminophen (Tylenol) 650 mg PO Q4H PRN PRN Reason: Headache/Fever or Pain Bisacodyl (Dulcolax) 10 mg [place] Q24H PRN PRN Reason: Constipation Clonidine HCl (Catapres) 0.1 mg PO Q4H PRN PRN Reason: Systolic BP > 180 Dextrose/Water (Dextrose 50%) 25 gm SLOW IVP PRN PRN PRN Reason: Hypoglycemia Docusate Sodium (Colace) 100 mg PO BID [facility] Last Admin: 12/22/16 12:05 Dose: 100 mg Famotidine (Pepcid) 20 mg PO BID [facility] Last Admin: 12/22/16 12:05 Dose: 20 mg Folic Acid (Folvite) 1 mg PO DAILY [facility] Last Admin: 12/22/16 12:05 Dose: 1 mg Glucagon (Glucagon) 1 mg IM PRN PRN PRN Reason: Hypoglycemia Guaifenesin (Robitussin Sf) 200 mg PO Q4H PRN PRN Reason: Cough Hydralazine HCl (Apresoline) 10 mg SLOW IVP Q4H PRN PRN Reason: SBP Greater Than 180 Dextrose/Water (D5w) 1,000 mls @ 0 mls/hr IV .Q0M PRN; As Directed PRN Reason: Hypoglycemia Sodium Chloride (Normal Saline 0.9%) 1,000 mls @ 125 mls/hr IV .Q8H [facility] Last Admin: 12/22/16 12:06 Dose: 1,000 mls Insulin Detemir 15 units/ (Miscellaneous Medication) 0.15 mls @ 0 mls/hr SC BID [facility] Piperacillin Sod/Tazobactam (Sod 3.375 gm/ Sodium Chloride) 100 mls @ 200 mls/ hr IVPB Q6H [facility] Last Admin: 12/22/16 09:28 Dose: 100 mls Vancomycin HCl 1.5 gm/ Sodium (Chloride) 300 mls @ 200 mls/hr IVPB 0800,1600, 2359 [facility] Insulin Human Regular (Humulin R) 0 units SC .MILD SLIDING SCALE PRN PRN Reason: Mild Correctional Scale Last Admin: 12/22/16 12:12 Dose: 5 unit Miscellaneous Medication (Pharmacy To Dose) 0 each IVPB ASDIR PRN PRN Reason: Pharmacy to Dose VANCOMYCIN Ondansetron HCl (Zofran Odt) 4 mg PO Q6H PRN PRN Reason: Nausea/Vomiting Ondansetron HCl (Zofran) 4 mg IVP Q6H PRN PRN Reason: Nausea/Vomiting Pneumococcal Polyvalent Vaccine (Pneumovax 23) 0.5 ml IM .ONCE ONE Stop: 12/22/16 21:01 Senna (Senokot) 2 tab PO HSPRN PRN PRN Reason: Constipation Sodium Chloride (Flush - Normal Saline) 10 ml IVF Q12HR [facility] Last Admin: 12/22/16 12:11 Dose: Not Given Sodium Chloride (Flush - Normal Saline) 10 ml IVF PRN PRN PRN Reason: Saline Flush Thiamine HCl (Thiamine) 100 mg PO DAILY [facility] Last Admin: 12/22/16 12:05 Dose: 100 mg
[2016-12-22 14:30] VITALS: BMI 30.9
[2016-12-22] MEDS: Vancomycin HCl 1.5 GM in Sodium Chloride 0.9% 250 ML 300 ML IVPB SCH (16:18)
[2016-12-22] MEDS ORDERED: Insulin Detemir 100 UNITS/ML 15 UNITS in Pre-Filled Syringe 1 EACH SC SCH (21:00)
[2016-12-22] MEDS: Acetaminophen 325 MG TAB PO PRN (22:12)
[2016-12-23] MEDS: Vancomycin HCl 1.5 GM in Sodium Chloride 0.9% 250 ML 300 ML IVPB SCH ×2 (00:33→09:18)
[2016-12-23] MEDS: Sodium Chloride 0.9% 1,000 ML IV SCH ×2 (00:37→05:08)
[2016-12-23] MEDS: cloNIDine HCl 0.1 MG TAB PO PRN ×2 (01:32→21:12)
[2016-12-23 04:49] LABS: #Eosinphils 0.3 thou/uL (0.0-0.7); #Lymphocytes 2.1 thou/uL (1.20-3.40); #Monocytes 0.4 thou/uL (0.11-0.59); %Basophils 0.6 % (0.0-1.0); %Eosinophils 4.1 % (0.0-10.0); %Lymphocytes 30.7 % (21.0-51.0); %Monocytes 6.1 % (0.0-10.0); Hematocrit 27.8 % (42.0-52.0); Red Blood Cell (RBC) Count 3.25 mill/uL (4.70-6.10); White Blood Cell (WBC) Count 6.8 thou/uL (4.8-10.8)
[2016-12-23] MEDS: Insulin Regular 300 UNITS/3 ML VIAL SC PRN ×3 (05:08→16:52)
[2016-12-23 05:09] LABS: ALT (SGPT) 15 U/L (8-55); AST (SGOT) 25 U/L (5-34); Alkaline Phosphatase 124 U/L (40-150); Anion Gap 10 mmol/L (10-20); BUN (Urea Nitrogen) 11 mg/dL (8.9-20.6); Bilirubin, Total 0.3 mg/dL (0.2-1.2); Calc. Creatinine Clearance 152 mL/min (70-130); Calcium 8.5 mg/dL (7.8-10.44); Carbon Dioxide 28 mmol/L (22-29); Chloride 103 mmol/L (98-107); Estimated GFR-MDRD Greater than 90; Globulin 4.2 g/dL (2.4-3.5)
[2016-12-23] MEDS: Piperacillin/Tazobactam 3.375 GM in Sodium Chloride 0.9% 100 ML IVPB SCH ×5 (07:00→19:14)
[2016-12-23 07:58] LABS: Vancomycin, Trough 20.2 ug/mL
[2016-12-23] MEDS: Docusate 100 MG CAP PO SCH ×2 (08:12→21:02)
[2016-12-23] MEDS: Folic Acid 1 MG TAB PO SCH (08:13)
[2016-12-23] MEDS: Famotidine 20 MG TAB PO SCH ×2 (08:13→21:01)
[2016-12-23] MEDS: Acetaminophen 325 MG TAB PO PRN ×2 (08:20→21:01)
[2016-12-23] MEDS: Insulin Detemir 100 UNITS/ML 20 UNITS in Pre-Filled Syringe 1 EACH SC SCH ×2 (09:47→21:02)
[2016-12-23] MEDS: Vancomycin HCl 1.25 GM in Sodium Chloride 0.9% 250 ML 250 ML IVPB SCH ×2 (09:47→16:51)
--- NOTE | 2016-12-23 14:50 | PDOC.PN ---
- Subjective Encounter Start Date: 12/23/16 Encounter Start Time: 09:00 Subjective: feels better -: has not tried glipizide before, diabetes from last 5yrs - Objective Resuscitation Status: Resuscitation Status FULL:Full Resuscitation MAR Reviewed: Yes Vital Signs & Weight: Vital Signs (12 hours) Temp Pulse Resp BP BP Pulse Ox 12/23/16 11:54 97.9 F 83 16 153/95 H 100 12/23/16 08:13 143/81 H 12/23/16 08:08 98.4 F 86 16 143/81 H 99 12/23/16 08:00 98.4 F 86 16 99 12/23/16 05:30 163/98 H 12/23/16 04:08 97.7 F 82 16 173/101 H 99 Weight Admit Weight 248 lb 8.998 oz Weight 248 lb 8.998 oz I&O: 12/22/16 12/23/16 12/24/16 06:59 06:59 06:59 Intake Total 2400 Output Total 1000 Balance 1400 Result Diagrams: 12/23/16 03:59 12/23/16 03:59 Additional Labs: Accuchecks 12/23/16 12/23/16 12/23/16 11:54 08:26 04:38 POC Glucose 193 H 206 H 232 H 12/23/16 12/22/16 12/22/16 01:26 21:11 16:06 POC Glucose 354 H 196 H 275 H Phys Exam - Physical Examination HEENT: PERRLA, moist MMs Neck: no JVD, supple Respiratory: no wheezing, no rales Cardiovascular: RRR, no significant murmur Gastrointestinal: soft, non-tender, positive bowel sounds Musculoskeletal: pulses present right foot in dressing and wound vac Neurological: non-focal, moves all 4 limbs Psychiatric: A&O x 3 Dx/Plan (1) Ulcer of right foot due to type 2 diabetes mellitus Code(s): E11.621 - TYPE 2 DIABETES MELLITUS WITH FOOT ULCER; L97.519 - NON-PRS CHRONIC ULCER OTH PRT RIGHT FOOT W UNSP SEVERITY Status: Acute (2) HTN (hypertension) Code(s): I10 - ESSENTIAL (PRIMARY) HYPERTENSION Status: Chronic Qualifiers: Hypertension type: essential hypertension Qualified Code(s): I10 - Essential (primary) hypertension (3) Dyslipidemia Code(s): E78.5 - HYPERLIPIDEMIA, UNSPECIFIED Status: Chronic (4) Chronic anemia Code(s): D64.9 - ANEMIA, UNSPECIFIED Status: Chronic (5) DM (diabetes mellitus), type 2, uncontrolled Code(s): E11.65 - TYPE 2 DIABETES MELLITUS WITH HYPERGLYCEMIA Status: Acute Qualifiers: Diabetes mellitus complication status: with hyperglycemia Diabetes mellitus correction insulin use: with correction use Qualified Code(s): E11.65 - Type 2 diabetes mellitus with hyperglycemia; Z79.4 - termination clerk (current) use of insulin - Plan add glipizide, increase levemir to 20 u bid -: will come down on levemir based on glucose trend -: will need wound vac for dc plan -: add iron with Hb of 8g * . Review of Systems - Medications/Allergies Allergies/Adverse Reactions: Allergies Allergy/AdvReac Type Severity Reaction Status Date / Time No Known Allergies Allergy Verified 07/13/16 04:01 Medications: Current Medications Acetaminophen (Tylenol) 650 mg PO Q4H PRN PRN Reason: Headache/Fever or Pain Last Admin: 12/23/16 08:20 Dose: 650 mg Atorvastatin Calcium (Lipitor) 10 mg PO HS [facility] Bisacodyl (Dulcolax) 10 mg [place] Q24H PRN PRN Reason: Constipation Clonidine HCl (Catapres) 0.1 mg PO Q4H PRN PRN Reason: Systolic BP > 180 Last Admin: 12/23/16 01:32 Dose: 0.1 mg Dextrose/Water (Dextrose 50%) 25 gm SLOW IVP PRN PRN PRN Reason: Hypoglycemia Docusate Sodium (Colace) 100 mg PO BID [facility] Last Admin: 12/23/16 08:12 Dose: 100 mg Enalapril Maleate (Vasotec) 10 mg PO DAILY [facility] Last Admin: 12/23/16 08:13 Dose: 10 mg Famotidine (Pepcid) 20 mg PO BID [facility] Last Admin: 12/23/16 08:13 Dose: 20 mg Folic Acid (Folvite) 1 mg PO DAILY [facility] Last Admin: 12/23/16 08:13 Dose: 1 mg Glipizide (Glucotrol) 5 mg PO BID[facility] Glucagon (Glucagon) 1 mg IM PRN PRN PRN Reason: Hypoglycemia Guaifenesin (Robitussin Sf) 200 mg PO Q4H PRN PRN Reason: Cough Hydralazine HCl (Apresoline) 10 mg SLOW IVP Q4H PRN PRN Reason: SBP Greater Than 180 Last Admin: 12/23/16 05:04 Dose: 10 mg Dextrose/Water (D5w) 1,000 mls @ 0 mls/hr IV .Q0M PRN; As Directed PRN Reason: Hypoglycemia Piperacillin Sod/Tazobactam (Sod 3.375 gm/ Sodium Chloride) 100 mls @ 200 mls/ hr IVPB Q6H [facility] Last Admin: 12/23/16 12:06 Dose: 100 mls Insulin Detemir 20 units/ (Miscellaneous Medication) 0.2 mls @ 0 mls/hr SC BID [facility] Last Admin: 12/23/16 09:47 Dose: 0.2 mls Vancomycin HCl 1.25 gm/ Sodium (Chloride) 250 mls @ 166.667 mls/hr IVPB 0100, 0900,1700 [facility] Last Admin: 12/23/16 09:47 Dose: 250 mls Insulin Human Regular (Humulin R) 0 units SC .MILD SLIDING SCALE PRN PRN Reason: Mild Correctional Scale Last Admin: 12/23/16 12:06 Dose: 2 unit Miscellaneous Medication (Pharmacy To Dose) 0 each IVPB ASDIR PRN PRN Reason: Pharmacy to Dose VANCOMYCIN Ondansetron HCl (Zofran Odt) 4 mg PO Q6H PRN PRN Reason: Nausea/Vomiting Ondansetron HCl (Zofran) 4 mg IVP Q6H PRN PRN Reason: Nausea/Vomiting Senna (Senokot) 2 tab PO HSPRN PRN PRN Reason: Constipation Sodium Chloride (Flush - Normal Saline) 10 ml IVF Q12HR [facility] Last Admin: 12/23/16 08:14 Dose: Not Given Sodium Chloride (Flush - Normal Saline) 10 ml IVF PRN PRN PRN Reason: Saline Flush Thiamine HCl (Thiamine) 100 mg PO DAILY [facility] Last Admin: 12/23/16 08:12 Dose: 100 mg
[2016-12-23] MEDS: Ferrous Sulfate 325 MG TAB PO SCH (16:51)
[2016-12-23] MEDS: glipiZIDE 5 MG TAB PO SCH (16:51)
[2016-12-23] MEDS ORDERED: Simvastatin 20 MG TAB PO SCH (21:00)
[2016-12-23] MEDS: Atorvastatin Calcium 10 MG TAB PO SCH (21:02)
[2016-12-23] MEDS ORDERED: HYDROcodone/Acetaminophen 10/325 mg Tablet PO SCH (22:15)
[2016-12-24] MEDS: Piperacillin/Tazobactam 3.375 GM in Sodium Chloride 0.9% 100 ML IVPB SCH ×4 (00:48→18:28)
[2016-12-24] MEDS: cloNIDine HCl 0.1 MG TAB PO PRN ×2 (01:50→23:28)
[2016-12-24] MEDS: Vancomycin HCl 1.25 GM in Sodium Chloride 0.9% 250 ML 250 ML IVPB SCH (01:50)
[2016-12-24 05:29] LABS: #Eosinphils 0.3 thou/uL (0.0-0.7); #Lymphocytes 1.8 thou/uL (1.20-3.40); #Monocytes 0.5 thou/uL (0.11-0.59); %Basophils 0.6 % (0.0-1.0); %Eosinophils 4.7 % (0.0-10.0); %Lymphocytes 32.4 % (21.0-51.0); %Monocytes 8.6 % (0.0-10.0); Hematocrit 26.8 % (42.0-52.0); Mean Platelet Volume 6.5 fL (7.4-10.4); Red Blood Cell (RBC) Count 3.12 mill/uL (4.70-6.10); White Blood Cell (WBC) Count 5.5 thou/uL (4.8-10.8)
[2016-12-24 05:53] LABS: ALT (SGPT) 26 U/L (8-55); AST (SGOT) 40 U/L (5-34); Alkaline Phosphatase 170 U/L (40-150); Anion Gap 12 mmol/L (10-20); BUN (Urea Nitrogen) 11 mg/dL (8.9-20.6); Bilirubin, Total 0.2 mg/dL (0.2-1.2); Calc. Creatinine Clearance 139 mL/min (70-130); Calcium 8.7 mg/dL (7.8-10.44); Carbon Dioxide 25 mmol/L (22-29); Chloride 107 mmol/L (98-107); Estimated GFR-MDRD 87; Globulin 4.1 g/dL (2.4-3.5); Protein, Total 6.9 g/dL (6.0-8.3)
[2016-12-24] MEDS: Ferrous Sulfate 325 MG TAB PO SCH ×2 (07:38→16:35)
[2016-12-24] MEDS: Docusate 100 MG CAP PO SCH ×2 (07:38→20:48)
[2016-12-24] MEDS: Famotidine 20 MG TAB PO SCH ×2 (07:38→20:47)
[2016-12-24] MEDS: glipiZIDE 5 MG TAB PO SCH ×2 (07:38→16:34)
[2016-12-24] MEDS: Folic Acid 1 MG TAB PO SCH (07:38)
[2016-12-24 08:36] LABS: Vancomycin, Trough 25.4 ug/mL
--- NOTE | 2016-12-24 15:24 | PDOC.PN ---
- Subjective Encounter Start Date: 12/24/16 Encounter Start Time: 08:30 Subjective: is feeling better - Objective Resuscitation Status: Resuscitation Status FULL:Full Resuscitation MAR Reviewed: Yes Vital Signs & Weight: Vital Signs (12 hours) Temp Pulse Resp BP BP Pulse Ox 12/24/16 12:00 97.8 F 86 18 162/102 H 99 12/24/16 08:20 98.5 F 86 16 156/90 H 100 12/24/16 08:00 98.5 F 86 16 96 12/24/16 07:38 176/103 H 12/24/16 05:12 81 176/103 H 12/24/16 04:00 98.6 F 81 20 164/103 H 99 Weight Admit Weight 248 lb 8.998 oz Weight 248 lb 9.6 oz I&O: 12/23/16 12/24/16 12/25/16 06:59 06:59 06:59 Intake Total 2400 1945 600 Output Total 1000 2800 Balance 1400 -855 600 Result Diagrams: 12/24/16 04:00 12/24/16 04:00 Additional Labs: Accuchecks 12/24/16 12/24/16 12/24/16 11:22 05:03 01:00 POC Glucose 88 81 134 H 12/23/16 12/23/16 21:06 16:34 POC Glucose 121 H 152 H Phys Exam - Physical Examination HEENT: PERRLA, moist MMs Neck: no JVD, supple Respiratory: no wheezing, no rales Cardiovascular: RRR, no significant murmur Gastrointestinal: soft, non-tender, positive bowel sounds Musculoskeletal: no edema, pulses present right foot in dressing and wound vac Neurological: non-focal, moves all 4 limbs Psychiatric: A&O x 3 Dx/Plan (1) Ulcer of right foot due to type 2 diabetes mellitus Code(s): E11.621 - TYPE 2 DIABETES MELLITUS WITH FOOT ULCER; L97.519 - NON-PRS CHRONIC ULCER OTH PRT RIGHT FOOT W UNSP SEVERITY Status: Acute (2) HTN (hypertension) Code(s): I10 - ESSENTIAL (PRIMARY) HYPERTENSION Status: Chronic Qualifiers: Hypertension type: essential hypertension Qualified Code(s): I10 - Essential (primary) hypertension (3) Dyslipidemia Code(s): E78.5 - HYPERLIPIDEMIA, UNSPECIFIED Status: Chronic (4) Chronic anemia Code(s): D64.9 - ANEMIA, UNSPECIFIED Status: Chronic (5) DM (diabetes mellitus), type 2, uncontrolled Code(s): E11.65 - TYPE 2 DIABETES MELLITUS WITH HYPERGLYCEMIA Status: Acute Qualifiers: Diabetes mellitus complication status: with hyperglycemia Diabetes mellitus termite helper insulin use: with usp use Qualified Code(s): E11.65 - Type 2 diabetes mellitus with hyperglycemia; Z79.4 - termite renewal inspector (current) use of insulin - Plan diabetes is getting controlled on glipizide alone -: dc levemir -: needs outpt wound vac -: dc plan in am * . Review of Systems - Medications/Allergies Allergies/Adverse Reactions: Allergies Allergy/AdvReac Type Severity Reaction Status Date / Time No Known Allergies Allergy Verified 07/13/16 04:01 Medications: Current Medications Acetaminophen (Tylenol) 650 mg PO Q4H PRN PRN Reason: Headache/Fever or Pain Last Admin: 12/23/16 21:01 Dose: 650 mg Atorvastatin Calcium (Lipitor) 10 mg PO [facility] Last Admin: 12/23/16 21:02 Dose: 10 mg Bisacodyl (Dulcolax) 10 mg [place] Q24H PRN PRN Reason: Constipation Clonidine HCl (Catapres) 0.1 mg PO Q4H PRN PRN Reason: Systolic BP > 180 Last Admin: 12/24/16 01:50 Dose: 0.1 mg Dextrose/Water (Dextrose 50%) 25 gm SLOW IVP PRN PRN PRN Reason: Hypoglycemia Docusate Sodium (Colace) 100 mg PO BID [facility] Last Admin: 12/24/16 07:38 Dose: 100 mg Enalapril Maleate (Vasotec) 10 mg PO DAILY [facility] Last Admin: 12/24/16 07:38 Dose: 10 mg Famotidine (Pepcid) 20 mg PO BID [facility] Last Admin: 12/24/16 07:38 Dose: 20 mg Ferrous Sulfate (Feosol) 325 mg PO BID-[facility] Last Admin: 12/24/16 07:38 Dose: 325 mg Folic Acid (Folvite) 1 mg PO DAILY [facility] Last Admin: 12/24/16 07:38 Dose: 1 mg Glipizide (Glucotrol) 5 mg PO BID-[facility] Last Admin: 12/24/16 07:38 Dose: 5 mg Glucagon (Glucagon) 1 mg IM PRN PRN PRN Reason: Hypoglycemia Guaifenesin (Robitussin Sf) 200 mg PO Q4H PRN PRN Reason: Cough Hydralazine HCl (Apresoline) 10 mg SLOW IVP Q4H PRN PRN Reason: SBP Greater Than 180 Last Admin: 12/24/16 05:12 Dose: 10 mg Dextrose/Water (D5w) 1,000 mls @ 0 mls/hr IV .Q0M PRN; As Directed PRN Reason: Hypoglycemia Piperacillin Sod/Tazobactam (Sod 3.375 gm/ Sodium Chloride) 100 mls @ 200 mls/ hr IVPB Q6H [facility] Last Admin: 12/24/16 12:22 Dose: 100 mls Vancomycin HCl 1.5 gm/ Sodium (Chloride) 300 mls @ 200 mls/hr IVPB 0500,1700 [facility] Insulin Human Regular (Humulin R) 0 units SC .MILD SLIDING SCALE PRN PRN Reason: Mild Correctional Scale Last Admin: 12/23/16 16:52 Dose: 2 unit Miscellaneous Medication (Pharmacy To Dose) 0 each IVPB ASDIR PRN PRN Reason: Pharmacy to Dose VANCOMYCIN Ondansetron HCl (Zofran Odt) 4 mg PO Q6H PRN PRN Reason: Nausea/Vomiting Ondansetron HCl (Zofran) 4 mg IVP Q6H PRN PRN Reason: Nausea/Vomiting Senna (Senokot) 2 tab PO HSPRN PRN PRN Reason: Constipation Sodium Chloride (Flush - Normal Saline) 10 ml IVF Q12HR [facility] Last Admin: 12/24/16 07:41 Dose: 10 ml Sodium Chloride (Flush - Normal Saline) 10 ml IVF PRN PRN PRN Reason: Saline Flush Thiamine HCl (Thiamine) 100 mg PO DAILY [facility] Last Admin: 12/24/16 07:38 Dose: 100 mg
[2016-12-24] MEDS: Vancomycin HCl 1.5 GM in Sodium Chloride 0.9% 250 ML 300 ML IVPB SCH (16:35)
[2016-12-24] MEDS: Atorvastatin Calcium 10 MG TAB PO SCH (20:47)
[2016-12-24] MEDS ORDERED: Insulin Detemir 100 UNITS/ML 10 UNITS in Pre-Filled Syringe 1 EACH SC SCH (21:00)
[2016-12-24] MEDS: Acetaminophen 325 MG TAB PO PRN (23:29)
[2016-12-25] MEDS: Piperacillin/Tazobactam 3.375 GM in Sodium Chloride 0.9% 100 ML IVPB SCH ×4 (01:05→19:48)
[2016-12-25] MEDS: Vancomycin HCl 1.5 GM in Sodium Chloride 0.9% 250 ML 300 ML IVPB SCH ×2 (05:15→16:51)
[2016-12-25] MEDS: Folic Acid 1 MG TAB PO SCH (07:25)
[2016-12-25] MEDS: glipiZIDE 5 MG TAB PO SCH ×2 (07:25→16:51)
[2016-12-25] MEDS: Famotidine 20 MG TAB PO SCH ×2 (07:25→19:49)
[2016-12-25] MEDS: Docusate 100 MG CAP PO SCH ×2 (07:26→19:49)
[2016-12-25] MEDS: Ferrous Sulfate 325 MG TAB PO SCH ×2 (07:26→16:51)
--- NOTE | 2016-12-25 14:33 | PDOC.PN ---
- Subjective Encounter Start Date: 12/25/16 Encounter Start Time: 07:00 Subjective: feels better, pain is better -: is ambulating in hallway - Objective Resuscitation Status: Resuscitation Status FULL:Full Resuscitation MAR Reviewed: Yes Vital Signs & Weight: Vital Signs (12 hours) Temp Pulse Resp BP BP Pulse Ox 12/25/16 11:00 98.5 F 98 18 142/91 H 12/25/16 08:36 98.0 F 95 18 146/85 H 99 12/25/16 07:55 99.2 F 102 H 18 99 12/25/16 07:25 176/103 H 12/25/16 07:00 98.1 F 95 18 146/85 H 99 12/25/16 04:00 99.2 F 102 H 18 171/98 H 98 Weight Admit Weight 248 lb 8.998 oz Weight 248 lb 9.6 oz I&O: 12/24/16 12/25/16 12/26/16 06:59 06:59 06:59 Intake Total 1945 960 600 Output Total 2800 Balance -855 960 600 Result Diagrams: 12/24/16 04:00 12/24/16 04:00 Additional Labs: Accuchecks 12/25/16 12/25/16 12/25/16 10:45 03:59 01:04 POC Glucose 165 H 131 H 142 H 12/24/16 12/24/16 19:12 16:35 POC Glucose 133 H 139 H Phys Exam - Physical Examination HEENT: PERRLA, moist MMs Neck: no JVD, supple Respiratory: no wheezing, no rales Cardiovascular: RRR, no significant murmur Gastrointestinal: soft, non-tender, positive bowel sounds Musculoskeletal: no edema, pulses present Neurological: non-focal, moves all 4 limbs Psychiatric: A&O x 3 Dx/Plan (1) Ulcer of right foot due to type 2 diabetes mellitus Code(s): E11.621 - TYPE 2 DIABETES MELLITUS WITH FOOT ULCER; L97.519 - NON-PRS CHRONIC ULCER OTH PRT RIGHT FOOT W UNSP SEVERITY Status: Acute (2) HTN (hypertension) Code(s): I10 - ESSENTIAL (PRIMARY) HYPERTENSION Status: Chronic Qualifiers: Hypertension type: essential hypertension Qualified Code(s): I10 - Essential (primary) hypertension (3) Dyslipidemia Code(s): E78.5 - HYPERLIPIDEMIA, UNSPECIFIED Status: Chronic (4) Chronic anemia Code(s): D64.9 - ANEMIA, UNSPECIFIED Status: Chronic (5) DM (diabetes mellitus), type 2, uncontrolled Code(s): E11.65 - TYPE 2 DIABETES MELLITUS WITH HYPERGLYCEMIA Status: Acute Qualifiers: Diabetes mellitus complication status: with hyperglycemia Diabetes mellitus shelter insulin use: with shelter use Qualified Code(s): E11.65 - Type 2 diabetes mellitus with hyperglycemia; Z79.4 - head of merchandise buying (current) use of insulin - Plan diabetes is well controlled on oral glypizide alone -: outpt wound vac -: my dc anytime if wound vac is ready * .
[2016-12-25] MEDS: Acetaminophen 325 MG TAB PO PRN (14:54)
[2016-12-25] MEDS: Atorvastatin Calcium 10 MG TAB PO SCH (19:49)
--- NOTE | 2016-12-25 19:55 | DIS ---
DATE OF ADMISSION: 12/22/2016 DATE OF DISCHARGE: 12/25/2016 DISCHARGE DISPOSITION: To home. PRIMARY DISCHARGE DIAGNOSES: Right foot ulcer, status post ray amputation of great toe, diabetes mellitus type 2, uncontrolled due to noncompliance with medication, hypertension, chronic anemia, dyslipidemia. PROCEDURES DONE DURING HOSPITALIZATION: The patient has had ray amputation of right great toe done by Dr. Barrios on 12/22/2016, H\T\H 8.6 and 26 with platelet count of 364. Foot x-ray done on the day of admission right foot showed erosive changes surrounding the metatarsophalangeal joint in the great toe with evidence for osteomyelitis. Hemoglobin A1c was 12.6. Cultures from the right foot grew MRSA and Strep agalactiae. MRSA was sensitive to doxycycline, rifampin and Bactrim along with vancomycin and Zyvox. DISCHARGE MEDICATIONS: Enalapril 10 mg p.o. daily, ferrous sulfate 325 mg p.o. twice daily, folic acid 1 mg p.o. daily, simvastatin 20 mg p.o. q.p.m., Bactrim 1 tab twice daily for 1 week, glipizide 5 mg p.o. twice daily. ALLERGIES: No known drug allergies. INPATIENT CONSULTS: Dr. Barrios for General Surgery. BRIEF COURSE DURING HOSPITALIZATION: The patient initially got admitted on the for right foot great toe ulcer. He has had plain x-ray done, which showed findings of osteomyelitis. The patient had a temperature of 101.3 degrees on arrival. He was placed on vancomycin and Zosyn and has had consultation with Dr. Barrios. The patient has had ray amputation done of the right great toe on 12/22/[address] Barrios. Post-procedure, his wound was placed in wound VAC. His diabetes was uncontrolled due to noncompliance with medication. At the time of discharge, his diabetes is well controlled on glipizide 5 mg twice daily. Case management consultation was requested for wound VAC for outpatient setting. He is hemodynamically stable and has been cleared by General Surgery for discharge. The histopathology from right great toe shows proximal metatarsal margin of amputation free of osteomyelitis. Please [facility]. Addendum: Please note he stayed overnight and got discharged on 12/26/16 as his wound vac and wound care for outpt use was delayed. [facility]ITALKaitlynn
[2016-12-26] MEDS: Piperacillin/Tazobactam 3.375 GM in Sodium Chloride 0.9% 100 ML IVPB SCH ×3 (00:19→14:28)
[2016-12-26] MEDS ORDERED: HYDROcodone/Acetaminophen 10/325 mg Tablet PO SCH (01:30)
[2016-12-26] MEDS: Vancomycin HCl 1.5 GM in Sodium Chloride 0.9% 250 ML 300 ML IVPB SCH ×2 (04:56→05:51)
[2016-12-26] MEDS: glipiZIDE 5 MG TAB PO SCH (07:43)
[2016-12-26] MEDS: Folic Acid 1 MG TAB PO SCH (07:44)
[2016-12-26] MEDS: Ferrous Sulfate 325 MG TAB PO SCH (07:44)
[2016-12-26] MEDS: Famotidine 20 MG TAB PO SCH (07:44)
[2016-12-26] MEDS: Docusate 100 MG CAP PO SCH (07:44)
--- NOTE | 2016-12-26 10:31 | PDOC.PN ---
- Subjective Encounter Start Date: 12/26/16 Encounter Start Time: 07:00 Subjective: no pain, feels better - Objective Resuscitation Status: Resuscitation Status FULL:Full Resuscitation MAR Reviewed: Yes Vital Signs & Weight: Vital Signs (12 hours) Temp Pulse Resp BP BP Pulse Ox 12/26/16 08:00 98.7 F 97 16 96 12/26/16 07:44 182/106 H 12/26/16 07:36 98.7 F 97 16 174/103 H 96 12/26/16 04:00 99.2 F 116 H 20 169/98 H 95 12/26/16 01:33 158/89 H 12/26/16 00:24 104 H 182/106 H 12/26/16 00:00 99.3 F 104 H 20 182/106 H 94 L Weight Admit Weight 248 lb 8.998 oz Weight 248 lb 9.6 oz I&O: 12/25/16 12/26/16 12/27/16 06:59 06:59 06:59 Intake Total 960 1190 1230 Output Total 675 850 Balance 960 515 380 Result Diagrams: 12/24/16 04:00 12/24/16 04:00 Additional Labs: Accuchecks 12/26/16 12/26/16 12/25/16 04:41 00:24 19:40 POC Glucose 131 H 138 H 139 H 12/25/16 12/25/16 15:43 10:45 POC Glucose 121 H 165 H Phys Exam - Physical Examination HEENT: PERRLA, moist MMs Neck: no JVD, supple Respiratory: no wheezing, no rales Cardiovascular: RRR, no significant murmur Gastrointestinal: soft, non-tender, positive bowel sounds Musculoskeletal: no edema, pulses present right foot in dressing and wound vac Neurological: non-focal, moves all 4 limbs Psychiatric: A&O x 3 Dx/Plan (1) Ulcer of right foot due to type 2 diabetes mellitus Code(s): E11.621 - TYPE 2 DIABETES MELLITUS WITH FOOT ULCER; L97.519 - NON-PRS CHRONIC ULCER OTH PRT RIGHT FOOT W UNSP SEVERITY Status: Acute (2) HTN (hypertension) Code(s): I10 - ESSENTIAL (PRIMARY) HYPERTENSION Status: Chronic Qualifiers: Hypertension type: essential hypertension Qualified Code(s): I10 - Essential (primary) hypertension (3) Dyslipidemia Code(s): E78.5 - HYPERLIPIDEMIA, UNSPECIFIED Status: Chronic (4) Chronic anemia Code(s): D64.9 - ANEMIA, UNSPECIFIED Status: Chronic (5) DM (diabetes mellitus), type 2, uncontrolled Code(s): E11.65 - TYPE 2 DIABETES MELLITUS WITH HYPERGLYCEMIA Status: Acute Qualifiers: Diabetes mellitus complication status: with hyperglycemia Diabetes mellitus intermodal dispatcher insulin use: with fpc use Qualified Code(s): E11.65 - Type 2 diabetes mellitus with hyperglycemia; Z79.4 - nursing home (current) use of insulin - Plan dc plan pending wound vac arrangement for outpt use -: hemostable -: may dc anytime if wound vac is arranged -: oral antibiotic has been faxed to his pharmacy * . Review of Systems - Medications/Allergies Allergies/Adverse Reactions: Allergies Allergy/AdvReac Type Severity Reaction Status Date / Time No Known Allergies Allergy Verified 07/13/16 04:01 Medications: Current Medications Acetaminophen (Tylenol) 650 mg PO Q4H PRN PRN Reason: Headache/Fever or Pain Last Admin: 12/25/16 14:54 Dose: 650 mg Atorvastatin Calcium (Lipitor) 10 mg PO [facility] Last Admin: 12/25/16 19:49 Dose: 10 mg Bisacodyl (Dulcolax) 10 mg AR Q24H PRN PRN Reason: Constipation Clonidine HCl (Catapres) 0.1 mg PO Q4H PRN PRN Reason: Systolic BP > 180 Last Admin: 12/24/16 23:28 Dose: 0.1 mg Dextrose/Water (Dextrose 50%) 25 gm SLOW IVP PRN PRN PRN Reason: Hypoglycemia Docusate Sodium (Colace) 100 mg PO BID [facility] Last Admin: 12/26/16 07:44 Dose: 100 mg Enalapril Maleate (Vasotec) 10 mg PO DAILY [facility] Last Admin: 12/26/16 07:44 Dose: 10 mg Famotidine (Pepcid) 20 mg PO BID [facility] Last Admin: 12/26/16 07:44 Dose: 20 mg Ferrous Sulfate (Feosol) 325 mg PO BID[facility] Last Admin: 12/26/16 07:44 Dose: 325 mg Folic Acid (Folvite) 1 mg PO DAILY [facility] Last Admin: 12/26/16 07:44 Dose: 1 mg Glipizide (Glucotrol) 5 mg PO BID-AC [facility] Last Admin: 12/26/16 07:43 Dose: 5 mg Glucagon (Glucagon) 1 mg IM PRN PRN PRN Reason: Hypoglycemia Guaifenesin (Robitussin Sf) 200 mg PO Q4H PRN PRN Reason: Cough Hydralazine HCl (Apresoline) 10 mg SLOW IVP Q4H PRN PRN Reason: SBP Greater Than 180 Last Admin: 12/26/16 00:24 Dose: 10 mg Dextrose/Water (D5w) 1,000 mls @ 0 mls/hr IV .Q0M PRN; As Directed PRN Reason: Hypoglycemia Piperacillin Sod/Tazobactam (Sod 3.375 gm/ Sodium Chloride) 100 mls @ 200 mls/ hr IVPB Q6H [facility] Last Admin: 12/26/16 09:00 Dose: 100 mls Vancomycin HCl 1.5 gm/ Sodium (Chloride) 300 mls @ 200 mls/hr IVPB 0500,1700 [facility] Last Admin: 12/26/16 05:51 Dose: 300 mls Insulin Human Regular (Humulin R) 0 units SC .MILD SLIDING SCALE PRN PRN Reason: Mild Correctional Scale Last Admin: 12/23/16 16:52 Dose: 2 unit Miscellaneous Medication (Pharmacy To Dose) 0 each IVPB ASDIR PRN PRN Reason: Pharmacy to Dose VANCOMYCIN Ondansetron HCl (Zofran Odt) 4 mg PO Q6H PRN PRN Reason: Nausea/Vomiting Ondansetron HCl (Zofran) 4 mg IVP Q6H PRN PRN Reason: Nausea/Vomiting Senna (Senokot) 2 tab PO HSPRN PRN PRN Reason: Constipation Sodium Chloride (Flush - Normal Saline) 10 ml IVF Q12HR [facility] Last Admin: 12/26/16 07:45 Dose: Not Given Sodium Chloride (Flush - Normal Saline) 10 ml IVF PRN PRN PRN Reason: Saline Flush Thiamine HCl (Thiamine) 100 mg PO DAILY [facility] Last Admin: 12/26/16 07:45 Dose: 100 mg
[2016-12-26 11:59] VITALS: TEMP 99.1
[2016-12-26 14:38] VITALS: BP 144/81
== END 2016-12-26 15:03 | disposition home or self-care (01) | DRG 617 ==
LOC: ERS 03:35 → T4-A 05:14
PROVIDERS: ADMIT Internal Medicine; ATTEND Internal Medicine
PROC: 0Y6P0Z0 Detachment at Right 1st Toe, Complete, Open Approach (ICD-10-PCS; principal; 2016-12-22)
DX: E11.621 Type 2 diabetes mellitus with foot ulcer (principal); E87.1 Hypo-osmolality and hyponatremia; E11.22 Type 2 diabetes mellitus with diabetic chronic kidney disease; E11.40 Type 2 diabetes mellitus with diabetic neuropathy, unspecified; M86.171 Other acute osteomyelitis, right ankle and foot; L02.611 Cutaneous abscess of right foot; E11.65 Type 2 diabetes mellitus with hyperglycemia; L97.514 Non-pressure chronic ulcer of other part of right foot with necrosis of bone; Z72.0 Tobacco use; I12.9 Hypertensive chronic kidney disease with stage 1 through stage 4 chronic kidney disease, or unspecified chronic kidney disease; N18.2 Chronic kidney disease, stage 2 (mild); Z79.4 Long term (current) use of insulin; Z91.14 Patient's other noncompliance with medication regimen; E78.5 Hyperlipidemia, unspecified; E11.69 Type 2 diabetes mellitus with other specified complication; D64.9 Anemia, unspecified; M89.8X7 Other specified disorders of bone, ankle and foot
CPT/HCPCS: 36415; 36416; 80053; 80202; 85025; 87070; 87077; 87186; 87205; 88305; 88311; 99285; A4216; G8978-GP-CM; G8979-GP-CK; J0360; J1815; J2001; J2250; J2543; J2704; J3010; J3370; J7050

== ENCOUNTER 2016-12-28 05:58 | Inpatient (IN) | payer MEDICAID, SELFPAY ==
[2016-12-28 06:27] LABS: Anion Gap 11 mmol/L (-14-95); T. Carbon Dioxide 26.6 mmol/L (1.0-85.0); pH (Venous) 7.382 (7.35-7.45); vO2 Saturation-calc 83.2 % (0.0-100.0)
[2016-12-28 06:56] LABS: Troponin I 0.063 ng/mL (< 0.028)
--- NOTE | 2016-12-28 08:03 | HP ---
PRIMARY CARE PHYSICIAN: The patient claims no PCP, recently discharged from [facility]. He states since he has been in the hospital, he has been coughing, producing yellow mucous, insomnic , short of breath and diaphoretic with fever undocumented, sweats, chills. PAST MEDICAL HISTORY: Discharged 12/25/2016 after an amputation of right great toe, he has a histo ry of diabetes mellitus type 2 uncontrolled, hypertension uncontrolled, chronic anemia secondary to chronic disease, dyslipidemia, tobacco abuse, history of noncompliance with medications. MEDICATIONS: Medications at discharge, he was on enalapril 10 mg a day, ferrous sulfate 325 twice a day, folic acid 1 mg a day, Zocor 20 mg a day, Bactrim-DS 1 twice daily for a week, glipizide 5 mg twice daily. ALLERGIES: No known drug allergies. PAST SURGICAL HISTORY: Amputation, right great toe 1 week ago, intervention for a right foot ulcer in [place] recently. FAMILY HISTORY: Positive for severe diabetes, severe hypertension in multiple members of family. SOCIAL HISTORY: The patient smokes a pack of cigarettes a day. Denies alcohol. CODE STATUS: Full. REVIEW OF SYSTEMS: GENERAL: No headaches, dizziness or fainting. EYES: He has blurry vision when his sugar is up. ENT: No ear pain or drainage. No nose bleeding. No trouble swallowing. No bleeding gums. CARDIAC: No chest pain, orthopnea or paroxysmal nocturnal dyspnea. RESPIRATIONS: See present illness. GASTROINTESTINAL: No nausea, vomiting or abdominal pain, no constipation, no melena. He has had so me recent diarrhea, gastrointestinal. GENITOURINARY: No hematuria, dysuria or nocturia. MUSCULOSKELETAL: He has a wound on his right foot with a wound VAC on his right foot. SKIN: No bruising, bleeding or rash on his skin. He has no cyanosis, clubbing or edema. HEME/LYMPH: No tender or swollen lymph nodes in axilla, inguinal or cervical area. PSYCHIATRIC: No anxiety or depression. NEUROLOGICAL: No strokes, seizures, focal weakness. He does have decreased sensation in his feet. PHYSICAL EXAMINATION: GENERAL: He is an alert, cooperative, pleasant gentleman. VITAL SIGNS: Blood pressure is currently 191/93, it was as high as 204/124, pulse is in the 130 plu s or minus range, respirations ranged from 22-32, temperature was 99.8 orally. He initially had O2 saturations on room air in the low to mid 80s. He is currently 95+ or minus on a facemask. HEENT: Reveal pupils equal, round, and reactive to light. Extraocular movements are intact. Scler ae white. Tympanic membranes are clear. Nose is clear. Oral mucous membranes are wet. Dental hyg iene is adequate. NECK: No jugular venous distention, adenopathy, thyromegaly or bruits. CHEST: Clear to percussion. He has good breath sounds, but he has scattered rales faint in multipl e lung mishra. HEART: Had a regular rate and rhythm. First and second heart sounds are clear. There is an S4 gal lop. ABDOMEN: Soft, bowel sounds are normal. There is no hepatosplenomegaly, no mass, no rebound. EXTREMITIES: Reveal no cyanosis, clubbing or edema. He does have a missing right great toe and a w ound VAC on his right foot. SKIN: Warm and dry without any appreciated bruises or rashes. HEME/LYMPH: No tender or swollen lymph nodes in axilla, inguinal or cervical area. NEUROLOGIC: Cranial nerves II-XII are intact. Deep tendon reflexes symmetric and diminished. Move s all extremities. LABORATORY AND X-RAY FINDINGS: White count 12.4 with an absolute neutrophilia, hemoglobin 8.8, plat elet count 358,000. Venous blood gas was done for some reason the O2 was low. Basic metabolic prof ile shows a creatinine of 1.66, BUN of 20, sodium 134, potassium 4.7. Blood sugar 349. Liver funct ion tests normal. Troponin, 0.07, 0.06. BNP 146. CT of the chest, an interpretation is not availa ble from Radiology, interpretation is based on my viewing the films, appears to be significant bilat eral infiltrates, worse on the left than on the right. EKG; sinus tachycardia, no acute ST-T elevat ion changes, no acute ST-T changes, reviewed by me. ADMITTING DIAGNOSES: 1. Acute respiratory failure with hypoxemia. 2. Diffuse pneumonia. 3. Uncontrolled hypertension with renal complications. 4. Uncontrolled diabetes mellitus type 2 with renal complications. 5. Ongoing tobacco abuse.
[2016-12-28] MEDS ORDERED: guaiFENesin 100 MG/5 ML UDCUP PO SCH (09:00)
[2016-12-28] MEDS ORDERED: Sodium Chloride 0.9% 1,000 ML IV SCH ×2 (09:53→10:46)
[2016-12-28] MEDS ORDERED: Loperamide HCl 2 MG CAP PO PRN (09:53)
[2016-12-28] MEDS ORDERED: HYDROcodone/Acetaminophen 7.5/325 mg Tablet PO PRN (09:53)
[2016-12-28] MEDS ORDERED: Acetaminophen 325 MG TAB PO PRN (09:53)
[2016-12-28] MEDS ORDERED: Dextrose 50% Abboject 50 ML SYRINGE SLOW IVP PRN (09:53)
[2016-12-28] MEDS ORDERED: Labetalol HCl 100 MG/20 ML VIAL SLOW IVP PRN (09:53)
[2016-12-28] MEDS ORDERED: Zolpidem Tartrate 5 MG TAB PO PRN (09:53)
[2016-12-28] MEDS ORDERED: Dextrose 5% in Water 1,000 ML IV PRN (09:53)
[2016-12-28] MEDS ORDERED: Ondansetron HCl/PF 4 MG/2 ML Vial IVP PRN (09:53)
[2016-12-28 09:55] LABS: Troponin I 0.063 ng/mL (< 0.028)
--- NOTE | 2016-12-28 10:03 | PDOC.EVN ---
Event Note - Event Note Event Note: discussed wit commercial estimator. CT chest compatible with acute pulmonary edea due to uncontrolled htn. BP 185/ 113. diffuse post rqales, R>L. RRR [id number]. 1+ edema. DX acute pulmonary edema due to hypertensive crisis. plan 80 mg iv lasix , iv cardene for BP control, . 40 min critical care time.
[2016-12-28] MEDS ORDERED: Labetalol HCl 100 MG/20 ML VIAL SLOW IVP SCH (10:30)
[2016-12-28] MEDS ORDERED: Furosemide 100 MG/10 ML VIAL SLOW IVP SCH (10:30)
[2016-12-28] MEDS: Labetalol HCl 100 MG/20 ML VIAL SLOW IVP PRN ×5 (10:44→13:57)
[2016-12-28] MEDS ORDERED: Carvedilol 6.25 MG TAB PO SCH (10:45)
--- NOTE | 2016-12-28 10:57 | CON ---
DATE OF CONSULTATION: 12/28/2016 SERVICE: Pulmonary Medicine REASON FOR CONSULTATION: Pulmonary infiltrate. HISTORY OF PRESENT ILLNESS: The patient is a 41-year-old male with past medical hi story significant for hypertension. He presented to the emergency department with a 1 day history o f increasing dyspnea. He currently denies any chest discomfort or palpitations. He was given some oxygen and this improved significantly. Prior to this event, he indicates being in his usual state of health except for some chills that had came on over a period of 24 hours. He was also coughing u p a little bit of yellow sputum. PAST MEDICAL HISTORY: 1. Type 2 diabetes mellitus. 2. Hypertension. 3. Dyslipidemia. 4. Medical noncompliance. 5. Anemia. 6. Peripheral vascular disease. 7. Right great toe amputation. PAST SURGICAL HISTORY: Right great toe amputation, postop 1 week. ALLERGIES: No known drug allergies. MEDICATIONS LIST: A list of his inpatient medications was reviewed. There were no updates made at this time. SOCIAL HISTORY: Negative for alcohol or illicit drug use. He continues to smoke half a pack of cig arettes on a daily basis and has a greater than [id number] history of smoking. He has no exposure s to chemicals, dust, asbestos or tuberculosis. FAMILY HISTORY: Noncontributory. REVIEW OF SYSTEMS: General, head, ears, eyes, nose, throat, cardiovascular, respiratory, GI, , mu sculoskeletal, neurologic and skin is negative except as mentioned in the HPI. PHYSICAL EXAMINATION: VITAL SIGNS: Afebrile, pulse 108, blood pressure 204/113, respirations 28, saturation 100% on a sim ple facemask with 6 liters per minute running into it. HEENT: Normocephalic, atraumatic. Sclerae are white, conjunctivae pink. Oral and nasal mucosa is moist without lesion. HEART: There is a murmur heard at the right upper sternal border where it is the loudest. There is also an S4 identified at the left lower sternal border, and at the apex. He is tachycardic. Regul ar. ABDOMEN: Soft, nontender, nondistended. Bowel sounds are positive. LUNGS: Decent air entry. There is no prolonged expiratory phase or wheezing. Crackles are present , but predominate through the bibasilar region. MUSCULOSKELETAL: No cyanosis or clubbing. There is trace to 1+ pitting in the bilateral lower extr emities. His right foot is wrapped with a drain in place. GENITOURINARY: No [place]. LABORATORY DATA: PH 7.38, pCO2 42, pO2 49 the on a VBG. Troponin is stable at 0.63. CK-MB is norm al. WBC 12.4, neutrophil count is 87%. Glucose 349, creatinine 1.66. BNP 146. Liver function arthur dies and base met is otherwise unremarkable. Influenza A and B is negative. IMAGING: CTA of the chest demonstrates a small left-sided pleural effusion. There are centrally lo cated bilateral infiltrates present. There is no evidence of a pulmonary embolism. ASSESSMENT: 1. Hypertensive emergency. 2. Acute hypoxic respiratory failure. 3. Pulmonary infiltrate. 4. Medical noncompliance. 5. Non-ST elevation myocardial infarction. PLAN: We will diurese the patient, and started blood pressure control medications. He will remain in the IMCU for the next 24 hours. Once we get his blood pressure under control, we will consider t ransitioning him over to the floor. Oxygen will be weaned as tolerated. Because I cannot exclude t he possibility of a small pneumonia, we will go ahead and empirically put him on healthcare associat ed coverage and deescalate rapidly and limit therapy to 5-7 days if he clinically improves overnight . Pulmonary Critical Care will continue to follow.
[2016-12-28] MEDS ORDERED: niCARdipine HCl 25 MG in Sodium Chloride 0.9% 250 ML 240 ML IVPB SCH (11:00)
[2016-12-28] MEDS: Cefepime 2 GM in Sodium Chloride 0.9% 100 ML IVPB SCH ×2 (11:25→22:23)
[2016-12-28] MEDS: HumaLOG 300 UNITS/3 ML VIAL SC PRN ×3 (12:14→20:33)
[2016-12-28 12:45] LABS: Troponin I 0.053 ng/mL (< 0.028)
[2016-12-28] MEDS: Carvedilol 6.25 MG TAB PO SCH (17:39)
[2016-12-28] MEDS: Atorvastatin Calcium 10 MG TAB PO SCH (20:13)
[2016-12-29 05:10] LABS: #Lymphocytes 0.9 thou/uL (1.20-3.40); #Monocytes 0.5 thou/uL (0.11-0.59); #Neutrophils 9.9 thou/uL (1.40-6.50); %Basophils 0.1 % (0.0-1.0); %Eosinophils 0.1 % (0.0-10.0); %Lymphocytes 8.2 % (21.0-51.0); %Monocytes 4.5 % (0.0-10.0); Hematocrit 26.7 % (42.0-52.0); Mean Platelet Volume 6.1 fL (7.4-10.4); Red Blood Cell (RBC) Count 3.11 mill/uL (4.70-6.10); White Blood Cell (WBC) Count 11.3 thou/uL (4.8-10.8)
[2016-12-29] MEDS: Furosemide 40 MG/4 ML VIAL SLOW IVP SCH (05:35)
[2016-12-29 05:48] LABS: Anion Gap 14 mmol/L (10-20); BUN (Urea Nitrogen) 30 mg/dL (8.9-20.6); Calc. Creatinine Clearance 95 mL/min (70-130); Calcium 8.5 mg/dL (7.8-10.44); Carbon Dioxide 25 mmol/L (22-29); Chloride 102 mmol/L (98-107); Estimated GFR-MDRD 60
[2016-12-29] MEDS: HumaLOG 300 UNITS/3 ML VIAL SC PRN ×4 (06:38→21:24)
[2016-12-29] MEDS: Carvedilol 6.25 MG TAB PO SCH ×2 (08:37→17:14)
[2016-12-29] MEDS: Enoxaparin Sodium 40 MG/0.4 ML SYRINGE SC SCH (08:38)
[2016-12-29] MEDS ORDERED: Carvedilol 6.25 MG TAB PO SCH ×2 (09:29→09:45)
--- NOTE | 2016-12-29 09:38 | RAD ---
CHEST TWO VIEWS: History: Pulmonary edema. Follow up. Comparison: 12-28-16 FINDINGS: Cardiac silhouette and mediastinum are within normal limits. Bilateral perihilar infiltrates are les s pronounced than on the C2 exam from 12-28-16. Small amount of left pleural fluid is stable. No evid ence of pneumothorax. chemotherapist leads overlie the chest. IMPRESSION: Improved aeration of the lungs compared to recent CT. POS: [facility]
--- NOTE | 2016-12-29 09:48 | PRG ---
DATE OF SERVICE: 12/29/2016 SERVICE: Pulmonary Medicine INTERVAL HISTORY: The patient is doing very well from a respiratory standpoint. He is on room air and his oxygen saturations are 93%. He denies any current fevers, chills, nausea, vomiting, diarrhea. There were no overnight events. He is breathing more comfortably this morning. He denies having chest discomfort or palpitations. PHYSICAL EXAMINATION: VITAL SIGNS: Afebrile, pulse 95, blood pressure 146/84, respirations 20, saturation 91% on room air. GENERAL: The patient is awake, alert, in no apparent distress. LUNGS: Excellent air entry. Dependent crackles are minimal. HEART: Normal rate, regular. ABDOMEN: Soft, nontender, nondistended, bowel sounds positive. MUSCULOSKELETAL: No cyanosis or clubbing. No pitting in the bilateral lower extremities. NEUROLOGIC: Grossly nonfocal. LABORATORY DATA: WBC 11.3, hemoglobin 8.4. Platelets 378,000. Creatinine is 1.56 and gently down trending. BUN 30, bicarbonate 25 and roughly stable. Troponin 0.053. IMAGING: Echocardiogram demonstrates normal ejection fraction, 1 out of 3 diastolic dysfunction, no significant valvular abnormality. Chest x-ray demonstrates interval improvement in the degree of edema. ASSESSMENT: 1. Acute hypoxic respiratory failure, resolved. 2. Hypertensive emergency. 3. Pulmonary infiltrate, likely secondary to flash pulmonary edema. 4. Acute on chronic diastolic heart failure. 5. Medical noncompliance. 6. Non-ST elevation myocardial infarction. PLAN: We will continue to diurese the patient more slowly at this time. He will need to go out on good p.o. blood pressure medications with close follow up with his primary care physician in the outpatient setting. At this point, he is stable for transition to the telemetry unit. Pulmonary Critical Care will continue to follow for 1 additional day to make certain that he does not have recurrence in symptoms. Antibiotics will be converted to p.o. and he can complete a 5-day course. MISTY
--- NOTE | 2016-12-29 09:53 | PDOC.PN ---
- Subjective Encounter Start Date: 12/29/16 Encounter Start Time: 09:48 Subjective: no sob or pain - Objective Resuscitation Status: Resuscitation Status FULL:Full Resuscitation Vital Signs & Weight: Vital Signs (12 hours) Temp Pulse Resp BP BP Pulse Ox 12/29/16 08:37 146/84 H 12/29/16 08:00 98.0 F 95 20 92 L 12/29/16 07:09 98.0 F 95 20 165/99 H 91 L 12/29/16 06:00 18 151/89 H 12/29/16 04:00 98.7 F 97 18 149/91 H 94 L 12/29/16 02:00 104 H 18 147/90 H 12/29/16 00:00 96 18 141/85 H 96 12/28/16 22:30 95 18 142/81 H Weight Weight 257 lb 4.8 oz I&O: 12/28/16 12/29/16 12/30/16 06:59 06:59 06:59 Intake Total 850 Output Total 5400 Balance -4550 Result Diagrams: 12/29/16 04:55 12/29/16 04:55 Additional Labs: Accuchecks 12/29/16 12/28/16 12/28/16 06:38 20:16 16:29 POC Glucose 447 H 467 H 409 H 12/28/16 11:44 POC Glucose 412 H Radiology Reviewed by me: Yes (cxr- significant clearing of acute pulmonary edema) Phys Exam - Physical Examination Constitutional: NAD Neck: no JVD Respiratory: no wheezing, no rales clear Cardiovascular: RRR, no significant murmur Gastrointestinal: soft, positive bowel sounds Musculoskeletal: no edema Dx/Plan (1) Acute respiratory failure with hypoxia Code(s): J96.01 - ACUTE RESPIRATORY FAILURE WITH HYPOXIA Status: Resolved (2) Hypertensive crisis Code(s): I16.9 - HYPERTENSIVE CRISIS, UNSPECIFIED Status: Acute (3) DM (diabetes mellitus), type 2, uncontrolled Code(s): E11.65 - TYPE 2 DIABETES MELLITUS WITH HYPERGLYCEMIA Status: Chronic Qualifiers: Diabetes mellitus complication status: with kidney complications Diabetes mellitus jail insulin use: with termite renewal inspector use (4) Ulcer of right foot due to type 2 diabetes mellitus Code(s): E11.621 - TYPE 2 DIABETES MELLITUS WITH FOOT ULCER; L97.519 - NON-PRS CHRONIC ULCER OTH PRT RIGHT FOOT W UNSP SEVERITY Status: Chronic (5) Chronic anemia Code(s): D64.9 - ANEMIA, UNSPECIFIED Status: Chronic (6) Dyslipidemia Code(s): E78.5 - HYPERLIPIDEMIA, UNSPECIFIED Status: Chronic - Plan cont iv lasix -: cont coreg, add apresoline -: move to the [facility] -: cont accu/ ss/ reinstitute glipizide * .
[2016-12-29] MEDS: glipiZIDE 5 MG TAB PO SCH (17:14)
[2016-12-29] MEDS: Amoxicillin/Potassium Clav 875 MG TAB PO SCH (21:24)
[2016-12-29] MEDS: Atorvastatin Calcium 10 MG TAB PO SCH (21:24)
[2016-12-30] MEDS: Furosemide 40 MG/4 ML VIAL SLOW IVP SCH (06:00)
[2016-12-30] MEDS: Enoxaparin Sodium 40 MG/0.4 ML SYRINGE SC SCH (08:14)
[2016-12-30] MEDS: Amoxicillin/Potassium Clav 875 MG TAB PO SCH ×2 (08:14→20:59)
[2016-12-30] MEDS: glipiZIDE 5 MG TAB PO SCH ×2 (08:15→17:10)
[2016-12-30] MEDS: Carvedilol 6.25 MG TAB PO SCH ×2 (08:16→17:10)
--- NOTE | 2016-12-30 08:33 | PDOC.PN ---
- Subjective Encounter Start Date: 12/30/16 Encounter Start Time: 08:31 Subjective: no pain or sob - Objective Resuscitation Status: Resuscitation Status FULL:Full Resuscitation MAR Reviewed: Yes Vital Signs & Weight: Vital Signs (12 hours) Temp Pulse Resp BP BP Pulse Ox 12/30/16 08:16 162/95 H 12/30/16 08:14 11 L 12/30/16 07:49 97.4 F L 20 161/95 H 94 L 12/30/16 04:00 98.2 F 97 22 H 148/85 H 91 L 12/30/16 00:52 93 L 12/30/16 00:00 97.8 F 88 22 H 150/89 H 96 12/29/16 23:30 98.4 F 92 20 162/95 H 93 L 12/29/16 21:24 92 162/95 H Weight Admit Weight 263 lb Weight 257 lb 8 oz I&O: 12/29/16 12/30/16 12/31/16 06:59 06:59 06:59 Intake Total 850 690 Output Total 5400 1075 Balance -7350 -385 Result Diagrams: 12/29/16 04:55 12/29/16 04:55 Additional Labs: Accuchecks 12/30/16 12/29/16 12/29/16 05:58 20:10 16:58 POC Glucose 190 H 204 H 290 H 12/29/16 12/29/16 14:07 11:00 POC Glucose 266 H 300 H Phys Exam - Physical Examination Constitutional: NAD Neck: no JVD Respiratory: clear to auscultation bilateral Cardiovascular: RRR, no significant murmur Gastrointestinal: soft, non-tender Musculoskeletal: no edema Dx/Plan (1) Acute respiratory failure with hypoxia Code(s): J96.01 - ACUTE RESPIRATORY FAILURE WITH HYPOXIA Status: Resolved (2) Hypertensive crisis Code(s): I16.9 - HYPERTENSIVE CRISIS, UNSPECIFIED Status: Acute (3) DM (diabetes mellitus), type 2, uncontrolled Code(s): E11.65 - TYPE 2 DIABETES MELLITUS WITH HYPERGLYCEMIA Status: Chronic Qualifiers: Diabetes mellitus complication status: with kidney complications Diabetes mellitus residential insulin use: with residential use (4) Ulcer of right foot due to type 2 diabetes mellitus Code(s): E11.621 - TYPE 2 DIABETES MELLITUS WITH FOOT ULCER; L97.519 - NON-PRS CHRONIC ULCER OTH PRT RIGHT FOOT W UNSP SEVERITY Status: Chronic (5) Chronic anemia Code(s): D64.9 - ANEMIA, UNSPECIFIED Status: Chronic (6) Dyslipidemia Code(s): E78.5 - HYPERLIPIDEMIA, UNSPECIFIED Status: Chronic (7) Demand ischemia Code(s): I24.8 - OTHER FORMS OF ACUTE ISCHEMIC HEART DISEASE Status: Acute - Plan change lasix to po -: increase apresoline to 25mg qid -: cont coreg 12.5 bid * .
--- NOTE | 2016-12-30 09:45 | PRG ---
DATE OF SERVICE: 12/30/2016 SERVICE: Pulmonary Medicine. INTERVAL HISTORY: The patient is doing great from a cardiovascular and respiratory standpoint. He remains on room air. He denies any shortness of breath or chest discomfort. His blood pressure is under slightly better control with oral medications. PHYSICAL EXAMINATION: VITAL SIGNS: Afebrile, pulse 97, blood pressure 162/95, respirations 20, and saturation 94% on room air. GENERAL: Patient is awake, alert, in no apparent distress. LUNGS: Decent air entry with no prolonged expiratory phase, wheezing, rhonchi or crackles. HEART: Normal rate, regular. ABDOMEN: Soft, nontender, nondistended. Bowel sounds positive. MUSCULOSKELETAL: No cyanosis or clubbing. No pitting in the bilateral lower extremities. NEUROLOGIC: Grossly nonfocal. LABORATORY DATA: No new laboratories. Blood sugars ranged from 190-300. ASSESSMENT: 1. Acute hypoxic respiratory failure, resolved. 2. Hypertensive emergency. 3. Acute on chronic diastolic heart failure. 4. Pulmonary infiltrate secondary to hypertensive disease. 5. Medical noncompliance. 6. Non-ST elevation myocardial infarction. 7. Type 2 diabetes mellitus. PLAN: From a purely respiratory perspective, the patient is stable for discharge from the hospital. My suspicion is that he has sleep apnea based on his symptom profile. As such, I would like to se e him in clinic in 2-4 weeks in the outpatient setting to arrange an outpatient polysomnogram. At t his point, he has no further requirements for inpatient Pulmonary or Critical Care opinion. As such , we will sign off. Please call with additional questions or concerns.
[2016-12-30] MEDS: Atorvastatin Calcium 10 MG TAB PO SCH (21:00)
[2016-12-31] MEDS ORDERED: Furosemide 40 MG TAB PO SCH (07:30)
[2016-12-31] MEDS: Amoxicillin/Potassium Clav 875 MG TAB PO SCH (09:13)
[2016-12-31] MEDS: glipiZIDE 5 MG TAB PO SCH (09:14)
[2016-12-31] MEDS: Carvedilol 6.25 MG TAB PO SCH (09:14)
[2016-12-31] MEDS: Enoxaparin Sodium 40 MG/0.4 ML SYRINGE SC SCH (09:14)
--- NOTE | 2016-12-31 10:38 | DIS ---
PRIMARY CARE PROVIDER: [facility] DATE OF ADMISSION: 12/28/2016 DATE OF DISCHARGE: 12/31/2016 FINAL DIAGNOSES: 1. Acute pulmonary edema. 2. Hypertensive crisis. 3. Hypertension. 4. Acute respiratory failure with hypoxia. 5. Diabetes mellitus type 2. 6. Chronic anemia. 7. Chronic kidney disease stage 3. DISCHARGE MEDICATIONS: Glipizide 5 mg twice a day, Zocor 20 mg a day, Lasix 40 mg a day, enalapril 10 mg a day, Coreg 12.5 mg twice a day, Apresoline 50 mg p.o. twice a day. ALLERGIES: No known drug allergies. PENDING AT THE TIME OF DISCHARGE: Nothing. CODE STATUS: Full. HOSPITAL COURSE: The patient recently discharged after a surgery on his right great toe, presented with what appeared to be a pneumonia with fever, sweats, cough, shortness of breath. CT scan reveal ed dense bilateral infiltrates. His blood pressure was severely elevated at 204/124. He was placed in the Intensive Care Unit. Dr. Crain was consulted. His interpretation was more likely acute p ulmonary edema from hypertensive crisis. The patient was given Lasix. He rapidly diuresed 4 liters of fluid. His chest cleared, his respirations cleared dramatically. He was transitioned to oral a ntihypertensives. His chest x-ray cleared dramatically. His troponins were 0.06, 0.06, 0.05 consis [address] with demand ischemia. His electrolytes are now balanced. Blood sugar is adequately controlled . Cardiorespiratory exam is a normal. Blood pressure is under much better control 157/84 to 172/92 . His medications have been increased rapidly. He is desirous of going home. He has agreed to fol low up rapidly within 1 week with [facility]. Prescriptions have been written. I have spent a significant time explaining to him the necessity of careful taking of his medicines due to the risk of recurrent acute pulmonary edema, a hypertensive cardiomyopathy, a problem with potential complete renal failure. He appears to understand. He is being discharged on a diabetic diet with salt redu ction. He is to follow up with [facility].
[2016-12-31 15:10] VITALS: BMI 30.9
[2016-12-31 15:48] VITALS: BP 143/77; TEMP 97.2
== END 2016-12-31 15:46 | disposition home or self-care (01) | DRG 291 ==
LOC: ERS 05:58 → IMCU/EMU 07:22 → 2NO 12-29 13:58
PROVIDERS: ADMIT Internal Medicine; ATTEND Internal Medicine
DX: I13.0 Hypertensive heart and chronic kidney disease with heart failure and stage 1 through stage 4 chronic kidney disease, or unspecified chronic kidney disease (principal); J96.01 Acute respiratory failure with hypoxia; J18.9 Pneumonia, unspecified organism; E11.22 Type 2 diabetes mellitus with diabetic chronic kidney disease; I24.8 Other forms of acute ischemic heart disease; N18.3 Chronic kidney disease, stage 3 (moderate); I50.33 Acute on chronic diastolic (congestive) heart failure; I16.1 Hypertensive emergency; E11.621 Type 2 diabetes mellitus with foot ulcer; F17.210 Nicotine dependence, cigarettes, uncomplicated; E78.5 Hyperlipidemia, unspecified; Z89.411 Acquired absence of right great toe; Z91.19 Patient's noncompliance with other medical treatment and regimen; E11.65 Type 2 diabetes mellitus with hyperglycemia; D63.1 Anemia in chronic kidney disease; Z23 Encounter for immunization; L97.519 Non-pressure chronic ulcer of other part of right foot with unspecified severity
CPT/HCPCS: 36415; 36416; 71020; 80048; 82330; 82803; 85025; 93005; 93306; 93798; A4216; J0692; J1650; J1940; J7050

== ENCOUNTER 2017-01-14 09:05 | Outpatient (CLI) | payer SELFPAY ==
[2017-01-14] MEDS ORDERED: Sodium Chloride 0.9% 15 ML NEB ONE (16:56)
== END 2017-01-14 09:06 | disposition home or self-care (01) ==
LOC: WCC 09:05
PROVIDERS: ATTEND Family Medicine
DX: T81.89XD Other complications of procedures, not elsewhere classified, subsequent encounter (principal); Z89.411 Acquired absence of right great toe
CPT/HCPCS: 36416; 97605; A4218

== ENCOUNTER 2025-03-06 12:55 | Inpatient (IN) | payer MEDICAID ==
[2025-03-06 14:14] LABS: Actual Bicarbonate (HCO3v) 26.1 mEq/L (22-28); Analyzer IN Cardio ER; Base Excess -2.4 mEq/L (-2.0 to +3.0); Calcium, Ionized (venous) 1.16 mmol/L (1.16-1.32); Chloride (VBG) 107 mmol/L (98-106); Hematocrit-VBG 31 % (42.0-52.0); Hemoglobin (Hb) 10.5 g/dL (13.1-17.2); Potassium (VBG) 5.36 mmol/L (3.70-5.30); Sodium 141 mmol/L (133-146)
[2025-03-06] MEDS ORDERED: Etomidate 40 MG (20 mL) VIAL ONE (14:35)
[2025-03-06] MEDS ORDERED: Rocuronium Bromide 10 MG/ML (10ML VIAL) ONE (14:35)
[2025-03-06 14:42] LABS: #Basophils Less than 0.03 10x3/uL (0.0-0.2); #Eosinophils 0.26 10x3/uL (0.0-0.7); #Monocytes 0.47 10x3/uL (0.11-0.59); #Neutrophils 6.36 10x3/uL (1.40-6.50); %Basophils 0.2 % (0.0-1.0); %Eosinophils 2.9 % (0.0-10.0); %Lymphocytes 18.4 % (21.0-51.0); %Monocytes 5.3 % (0.0-10.0); %Neutrophils 71.5 % (42.0-75.0); Hematocrit 31.2 % (42.0-52.0); Hemoglobin 9.2 g/dL (14.0-18.0); Mean Corpuscular Hemoglobin 26.5 pg (27.0-31.0); Mean Corpuscular Volume 89.9 fL (78.0-98.0); Platelet Count 267 10x3/uL (130-400); Red Blood Cell (RBC) Count 3.47 mill/uL (4.70-6.10); White Blood Cell (WBC) Count 8.90 10x3/uL (4.8-10.8)
[2025-03-06 14:57] LABS: ALT (SGPT) 14 U/L (Less than 45); AST (SGOT) 13 U/L (11-34); Albumin 3.5 g/dL (3.1-4.5); Alkaline Phosphatase 61 U/L (40-110); Anion Gap 16 mmol/L (10-20); BUN (Urea Nitrogen) 69 mg/dL (8.9-20.6); Bilirubin, Total 0.2 mg/dL (0.3-1.2); Calc. Creatinine Clearance 0 mL/min (70-130); Calcium 8.6 mg/dL (7.8-10.44); Carbon Dioxide 22 mmol/L (22-29); Chloride 108 mmol/L (98-107); Globulin 3.6 g/dL (2.4-3.5); Glucose 129 mg/dL (70-105); Potassium 5.4 mmol/L (3.5-5.1); Sodium 141 mmol/L (136-145)
[2025-03-06] MEDS: Ventilator Sedation Protocol 1 EACH FS ONE (15:00)
[2025-03-06] MEDS ORDERED: Ondansetron PF 4 MG/2 ML Vial IVP PRN (15:06)
[2025-03-06] MEDS ORDERED: Acetaminophen 325 MG TAB PO PRN (15:06)
[2025-03-06] MEDS ORDERED: Ventilator Sedation Protocol 1 EACH FS SCH (15:15)
[2025-03-06] MEDS ORDERED: Fentanyl BOLUS 100 ML IVPB PRN (15:15)
[2025-03-06] MEDS ORDERED: Propofol BOLUS 1,000 MG/100 ML VIAL IV PRN (15:15)
[2025-03-06] MEDS ORDERED: DISCONTINUE PREVIOUS NARCOTIC PAIN MEDICATIONS AND BENZODIAZEPINES FS SCH (15:15)
[2025-03-06] MEDS ORDERED: INSULIN REGULAR IN 0.9 % NACL 100 ML IVPB SCH (15:15)
[2025-03-06] MEDS ORDERED: Piperacillin/Tazobactam 2.25 GM in Sodium Chloride 0.9% 100 ML IVPB SCH (15:30)
[2025-03-06 15:36] LABS: Actual Bicarbonate (HCO3a) 22.3 mEq/L (22-28); Analyzer IN Cardio ER; Base Excess (BEa) -3.0 mEq/L (-2.0 to +3.0); CO2 Tension 41.0 mmHg (35.0-45.0); Calcium, Ionized (arterial) 1.07 mmol/L (1.12-1.30); Hematocrit-ABG 29 % (42.0-52.0); Hemoglobin (Hb) 10.0 g/dL (14.0-18.0); Potassium - ABG Lab 5.25 mmol/L (3.70-5.30); pH, Arterial 7.354 (7.35-7.45)
[2025-03-06 15:37] LABS: O2 Tension (PaO2), arterial 166.0 mmHg (80.0-100.0)
[2025-03-06 15:38] LABS: Puncture Site RR
[2025-03-06] MEDS: Pantoprazole 40 MG VIAL IVP SCH (17:02)
[2025-03-06] MEDS: Carvedilol 25 MG TAB PER TUBE SCH (17:46)
[2025-03-06] MEDS ORDERED: Carvedilol 25 MG TAB ONE (18:04)
[2025-03-06 20:14] LABS: Actual Bicarbonate (HCO3v) 21.0 mEq/L (22-28); Base Excess -2.5 mEq/L (-2.0 to +3.0); Calcium, Ionized (venous) 1.06 mmol/L (1.16-1.32); Chloride (VBG) 109 mmol/L (98-106); Hematocrit-VBG 29 % (42.0-52.0); Hemoglobin (Hb) 10.0 g/dL (13.1-17.2); Potassium (VBG) 5.33 mmol/L (3.70-5.30); Sodium 141 mmol/L (133-146)
[2025-03-06] MEDS: Rosuvastatin 20 MG TAB PER TUBE SCH (20:51)
[2025-03-06] MEDS: Heparin 5,000 UNITS/ML VIAL SC SCH (20:51)
[2025-03-06] MEDS ORDERED: Glucagon 1 MG/ML KIT IM PRN (21:45)
[2025-03-06] MEDS ORDERED: Dextrose 50% Abboject 50 ML SYRINGE SLOW IVP PRN (21:45)
[2025-03-06 22:42] LABS: Influenza A by NAA Not Detected (NotDetected); Influenza B by NAA Not Detected (NotDetected); RSV by NAA Not Detected (NotDetected); SARS-CoV-2 NAA Rapid Test Not Detected (NotDetected)
[2025-03-06 23:23] LABS: Anion Gap 17 mmol/L (10-20); BUN (Urea Nitrogen) 68 mg/dL (8.9-20.6); Calc. Creatinine Clearance 106 mL/min (70-130); Calcium 9.0 mg/dL (7.8-10.44); Carbon Dioxide 20 mmol/L (22-29); Chloride 110 mmol/L (98-107); Glucose 172 mg/dL (70-105); Potassium 5.3 mmol/L (3.5-5.1); Sodium 142 mmol/L (136-145)
[2025-03-07 05:05] LABS: #Basophils Less than 0.03 10x3/uL (0.0-0.2); #Eosinophils Less than 0.03 10x3/uL (0.0-0.7); #Monocytes 0.15 10x3/uL (0.11-0.59); #Neutrophils 8.06 10x3/uL (1.40-6.50); %Basophils 0.2 % (0.0-1.0); %Eosinophils 0.1 % (0.0-10.0); %Lymphocytes 8.2 % (21.0-51.0); %Monocytes 1.6 % (0.0-10.0); %Neutrophils 88.2 % (42.0-75.0); Hematocrit 32.2 % (42.0-52.0); Hemoglobin 10.0 g/dL (14.0-18.0); Mean Corpuscular Hemoglobin 26.5 pg (27.0-31.0); Mean Corpuscular Volume 85.4 fL (78.0-98.0); Platelet Count 297 10x3/uL (130-400); Red Blood Cell (RBC) Count 3.77 mill/uL (4.70-6.10); White Blood Cell (WBC) Count 9.15 10x3/uL (4.8-10.8)
[2025-03-07 05:30] LABS: ALT (SGPT) 14 U/L (Less than 45); AST (SGOT) 17 U/L (11-34); Albumin 3.4 g/dL (3.1-4.5); Alkaline Phosphatase 70 U/L (40-110); Anion Gap 14 mmol/L (10-20); BUN (Urea Nitrogen) 62 mg/dL (8.9-20.6); Bilirubin, Total 0.3 mg/dL (0.3-1.2); Calc. Creatinine Clearance 116 mL/min (70-130); Calcium 9.2 mg/dL (7.8-10.44); Carbon Dioxide 19 mmol/L (22-29); Chloride 110 mmol/L (98-107); Globulin 4.1 g/dL (2.4-3.5); Glucose 202 mg/dL (70-105); Magnesium 2.6 mg/dL (1.6-2.6); Potassium 5.1 mmol/L (3.5-5.1); Sodium 138 mmol/L (136-145)
[2025-03-07] MEDS: Floranex 1 GM Packet PER TUBE SCH (08:26)
[2025-03-07] MEDS: Aspirin Chewable 81 MG TAB PER TUBE SCH (08:27)
[2025-03-07] MEDS: Mupirocin 1 GM TUBE TP SCH (08:28)
[2025-03-07] MEDS ORDERED: Floranex 1 GM Packet PO SCH (09:00)
[2025-03-07 13:01] VITALS: BMI 49.9
[2025-03-07] MEDS: DC Sedation Protocol FS ONE (19:20)
[2025-03-07] MEDS: Rosuvastatin 20 MG TAB PO SCH (20:07)
[2025-03-08 04:53] LABS: #Basophils Less than 0.03 10x3/uL (0.0-0.2); #Eosinophils Less than 0.03 10x3/uL (0.0-0.7); #Monocytes 0.28 10x3/uL (0.11-0.59); #Neutrophils 7.80 10x3/uL (1.40-6.50); %Basophils 0.1 % (0.0-1.0); %Eosinophils 0.0 % (0.0-10.0); %Lymphocytes 8.4 % (21.0-51.0); %Monocytes 3.1 % (0.0-10.0); %Neutrophils 86.6 % (42.0-75.0); Hematocrit 32.3 % (42.0-52.0); Hemoglobin 9.9 g/dL (14.0-18.0); Mean Corpuscular Hemoglobin 26.3 pg (27.0-31.0); Mean Corpuscular Volume 85.9 fL (78.0-98.0); Platelet Count 280 10x3/uL (130-400); Red Blood Cell (RBC) Count 3.76 mill/uL (4.70-6.10); White Blood Cell (WBC) Count 9.01 10x3/uL (4.8-10.8)
[2025-03-08 05:15] LABS: ALT (SGPT) 12 U/L (Less than 45); AST (SGOT) 16 U/L (11-34); Albumin 3.5 g/dL (3.1-4.5); Alkaline Phosphatase 61 U/L (40-110); Anion Gap 17 mmol/L (10-20); BUN (Urea Nitrogen) 47 mg/dL (8.9-20.6); Bilirubin, Total 0.2 mg/dL (0.3-1.2); Calc. Creatinine Clearance 114 mL/min (70-130); Calcium 9.3 mg/dL (7.8-10.44); Carbon Dioxide 20 mmol/L (22-29); Chloride 111 mmol/L (98-107); Globulin 4.1 g/dL (2.4-3.5); Glucose 272 mg/dL (70-105); Potassium 5.0 mmol/L (3.5-5.1); Sodium 143 mmol/L (136-145)
[2025-03-08 05:21] VITALS: BMI 49.8
[2025-03-08] MEDS: Aspirin Chewable 81 MG TAB PO SCH (08:18)
[2025-03-08] MEDS: Divalproex Sodium DR 500 MG TAB PO SCH (08:19)
[2025-03-08] MEDS: Carvedilol 25 MG TAB PO SCH (08:19)
[2025-03-08] MEDS: Floranex 1 GM Packet PO SCH (08:20)
[2025-03-08] MEDS: Pantoprazole 40 MG DR.TAB PO SCH (08:30)
[2025-03-08] MEDS: Cefdinir 300 MG CAP PO SCH ×2 (10:51→20:24)
[2025-03-08] MEDS: Heparin 5,000 UNITS/ML VIAL SC SCH (14:52)
[2025-03-08] MEDS: Insulin Glargine 30 UNITS/0.3 ML VIAL SC SCH (20:25)
[2025-03-09 07:00] LABS: #Basophils Less than 0.03 10x3/uL (0.0-0.2); #Eosinophils 0.06 10x3/uL (0.0-0.7); #Monocytes 0.56 10x3/uL (0.11-0.59); #Neutrophils 5.28 10x3/uL (1.40-6.50); %Basophils 0.2 % (0.0-1.0); %Eosinophils 0.7 % (0.0-10.0); %Lymphocytes 26.9 % (21.0-51.0); %Monocytes 6.8 % (0.0-10.0); %Neutrophils 64.3 % (42.0-75.0); Hematocrit 29.4 % (42.0-52.0); Hemoglobin 9.2 g/dL (14.0-18.0); Mean Corpuscular Hemoglobin 26.8 pg (27.0-31.0); Mean Corpuscular Volume 85.7 fL (78.0-98.0); Platelet Count 243 10x3/uL (130-400); Red Blood Cell (RBC) Count 3.43 mill/uL (4.70-6.10); White Blood Cell (WBC) Count 8.22 10x3/uL (4.8-10.8)
[2025-03-09] MEDS: Multivitamin W/ Minerals 1 TAB PO SCH (08:49)
[2025-03-09] MEDS: Ergocalciferol 1.25 MG(50,000 UNITS) CAP PO SCH (10:07)
[2025-03-09 12:42] VITALS: BP 144/80; TEMP 99
== END 2025-03-09 12:33 | DRG 208 ==
LOC: ERS 12:55 → ERHOLD 15:06 → CCU 20:10 → T4-A 03-08 13:57
PROVIDERS: ADMIT Internal Medicine; ATTEND Hospitalist
PROC: 5A1935Z Respiratory Ventilation, Less than 24 Consecutive Hours (ICD-10-PCS; principal; 2025-03-06)
PROC: 0BH17EZ Insertion of Endotracheal Airway into Trachea, Via Natural or Artificial Opening (ICD-10-PCS; 2025-03-06)
PROC: 4A133R1 Monitoring of Arterial Saturation, Peripheral, Percutaneous Approach (ICD-10-PCS; 2025-03-06)
PROC: 3E03329 Introduction of Other Anti-infective into Peripheral Vein, Percutaneous Approach (ICD-10-PCS; 2025-03-06)
PROC: 0T9B70Z Drainage of Bladder with Drainage Device, Via Natural or Artificial Opening (ICD-10-PCS; 2025-03-06)
PROC: 0DH67UZ Insertion of Feeding Device into Stomach, Via Natural or Artificial Opening (ICD-10-PCS; 2025-03-06)
PROC: XX20X89 Monitoring of Brain Electrical Activity, Computer-aided Detection and Notification, New Technology Group 9 (ICD-10-PCS; 2025-03-07)
DX: J18.9 Pneumonia, unspecified organism (principal); G93.41 Metabolic encephalopathy; J96.01 Acute respiratory failure with hypoxia; I50.32 Chronic diastolic (congestive) heart failure; I13.0 Hypertensive heart and chronic kidney disease with heart failure and stage 1 through stage 4 chronic kidney disease, or unspecified chronic kidney disease; N17.9 Acute kidney failure, unspecified; Z68.42 Body mass index [BMI] 45.0-49.9, adult; E87.20 Acidosis, unspecified; E11.40 Type 2 diabetes mellitus with diabetic neuropathy, unspecified; E66.813 Obesity, class 3; F17.200 Nicotine dependence, unspecified, uncomplicated; N18.30 Chronic kidney disease, stage 3 unspecified; E78.5 Hyperlipidemia, unspecified; G40.909 Epilepsy, unspecified, not intractable, without status epilepticus; E87.5 Hyperkalemia; F41.9 Anxiety disorder, unspecified; F32.A Depression, unspecified; D64.9 Anemia, unspecified; Z79.899 Other long term (current) drug therapy; Z86.73 Personal history of transient ischemic attack (TIA), and cerebral infarction without residual deficits; Z79.82 Long term (current) use of aspirin; Z89.522 Acquired absence of left knee; Z79.4 Long term (current) use of insulin
CPT/HCPCS: 36415; 36416; 71045; 80053; 80164; 82140; 82805; 83036; 83735; 83880; 84145; 85025; 87149; 87637; 93306; 93970; 94002; 94003; 94640; 94660; 95705; J1644; J1815; J2470; J2543; J2704; J2919; J7030; J7120